=== PATIENT | female | born 1940 | race Caucasian/White ===

== ENCOUNTER 2021-12-10 08:06 | Outpatient (CLI) | payer MEDICARE, SELFPAY ==
--- NOTE | ~2021-12-10 | CT_ITS ---
EXAMINATION: CT diagnostic chest w con DATE: 12/10/2021 08:57 INDICATION: History of pneumonia TECHNIQUE: Transaxial computed tomographic images of the chest were obtained after the administration of 75 cc of Omnipaque 350 intravenous contrast. The dose-length product (DLP) was 135.35 mGy-cm. Ite rative reconstruction was used. COMPARISON: None FINDINGS: There are patchy airspace opacities of the lungs with a peripheral predominance. There is n o pleural effusion or pneumothorax. No pathologically enlarged thoracic lymph nodes are identified. T he heart size is normal. There is severe thoracic spondylosis. There are partially imaged changes of anterior fusion in the cervical spine. IMPRESSION: 1. Patchy airspace opacities of the lungs, likely atelectasis and resolving pneumonia. Underlying chr onic interstitial lung disease is not excluded. Reviewed, dictated and finalized at location A. VIORAL INTERVENTIONIST IMPRESSION: 1. Patchy airspace opacities of the lungs, likely atelectasis and resolving pne umonia. Underlying chronic interstitial lung disease is not excluded.
[2021-12-10 08:51] LABS: Estimated Glomerular Filt Rate > 60
== END 2021-12-10 08:07 | disposition home or self-care (01) ==
LOC: ANHIMG 08:16
PROVIDERS: Visit Provider Internal Medicine
DX: R91.8 Other nonspecific abnormal finding of lung field (principal)
CPT/HCPCS: 71260; Q9967

== ENCOUNTER 2022-04-05 17:54 | Observation (INO) | payer MEDICARE, MEDICAID, SELFPAY ==
--- NOTE | ~2022-04-05 | CT_ITS ---
EXAMINATION: CT abdomen pelvis wo con DATE: 04/06/2022 15:51 INDICATION: Right hip pain. TECHNIQUE: Computed tomography (CT) of the abdomen and pelvis was performed without intravenous contr ast. Automated exposure control and iterative reconstruction technique were employed. The dose-length product was 981.28 mGy-cm. COMPARISON: Pelvis and right hip radiograph 04/06/2022, chest CT 12/10/2021 FINDINGS: The visualized portions of the lung bases demonstrate mild atelectasis. There is a 14 mm no dule in right middle lobe. There are trace pleural effusions. The heart size is normal. There are cor onary artery calcifications. No pericardial effusion. There is ectasia of ascending aorta measuring 4 .2 cm. The liver is normal. The gallbladder is distended, likely secondary to fasting. The spleen, pa ncreas, adrenal glands, and kidneys are normal. There is no urolithiasis. There are no dilated loops of bowel. The appendix is not visualized. There are no pathologically enlarged lymph nodes. There is no free intraperitoneal fluid. There is a total right hip arthroplasty. Acetabular protrusio is noted . There is an old ununited transverse fracture of right acetabulum resulting in loosening of the acet abular cup inferiorly. There is an old healed fracture of right inferior pubic ramus. There are heali ng insufficiency fractures of the sacral ala. There is moderate left hip osteoarthritis. There is sev ere thoracolumbar spondylosis. There are changes of posterior fusion procedure from L3 to L5 with ped icle screws. There is lucency around the L3 screws, consistent with loosening. There are changes of a nterior fusion procedure at L5-S1 with interbody device and anterior plate and screws. IMPRESSION: 1. 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 2. Posterior fusion procedure from L3 to L5 with lucency about the L3 screws, consistent with looseni ng. 3. Worsened 14 mm nodule in right lung middle lobe, most likely infection. Noncontrast chest CT is re commended in 3 months to exclude malignancy. Reviewed, dictated and finalized at location B. IMPRESSION: 1. 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 2. Posterior fusion procedure from L3 to L5 with lucency about the L3 screws, c onsistent with loosening. 3. Worsened 14 mm nodule in right lung middle lobe, most likely infection. Nonc ontrast chest CT is recommended in 3 months to exclude malignancy.
--- NOTE | ~2022-04-05 | XR_ITS ---
EXAMINATION: XR chest 1V portable Exam Date/Time: 04/05/2022 18:20 CDT HISTORY: weakness Comparison: CT chest 12/10/2021. RESULT: Lines, tubes, and devices: Cervical fusion hardware. Lungs and pleura: Senescent changes, otherwise clear. Cardiomediastinal silhouette: Stable cardiomediastinal silhouette. Other: No acute osseous or upper abdominal finding. IMPRESSION: No acute cardiopulmonary process. Reviewed, dictated and finalized at location K.
--- NOTE | ~2022-04-05 | US_ITS ---
US venous doppler [facility] DATE: 04/06/2022 14:00 INDICATION: Right leg pain TECHNIQUE: Real-time and color flow imaging and Doppler analysis of the veins of the lower extremitie s COMPARISON: None FINDINGS: There is spontaneous and phasic flow and normal augmentation and color flow signal and norm al compression of the common femoral, femoral, popliteal, posterior tibial and peroneal veins of both lower extremity. IMPRESSION: No evidence of deep venous thrombosis of the lower extremities Reviewed, dictated and finalized at Location A. Reviewed, dictated and finalized at location A.
--- NOTE | ~2022-04-05 | XR_ITS ---
EXAMINATION: 1. XR femur RT min 2V 2. XR hip BI 2V w AP pelvis DATE: 04/06/2022 14:40 INDICATION: Right thigh pain. Fall. TECHNIQUE: 2 views of right femur on 4 radiographs were obtained. An anteroposterior view of the pelv is and 2 views of each hip were obtained. COMPARISON: None. FINDINGS: PELVIS AND HIPS: There are changes of posterior fusion procedure in lumbar spine with pedicle screws. There are changes of anterior fusion procedure at L5-S1. There is a total right hip arthroplasty wit h acetabular protrusio. There is 7 mm lucency adjacent to the acetabular cup inferomedially. There is a fracture deformity of right inferior pubic ramus, likely old. There is moderate left hip osteoarth ritis. RIGHT FEMUR: Again seen is a total right hip arthroplasty as described above. Right knee demonstrates moderate osteoarthritis of medial compartment and mild osteoarthritis of lateral and patellofemoral compartments. No knee joint effusion. IMPRESSION: 1. Total right hip arthroplasty with lucency adjacent to the acetabular component that may be a displ aced periprosthetic fracture or a finding of loosening or infection. Noncontrast pelvis CT is recomme nded. Reviewed, dictated and finalized at location B. IMPRESSION: 1. Total right hip arthroplasty with lucency adjacent to the acetabular compone nt that may be a displaced periprosthetic fracture or a finding of loosening or infection. Noncontrast pelvis CT is recommended.
--- NOTE | ~2022-04-05 | CT_ITS ---
EXAMINATION: CT brain wo con DATE: 04/05/2022 19:06 INDICATION: confusion . TECHNIQUE: Computed tomography (CT) of the head was performed without intravenous contrast. The mA wa s adjusted according to patient size. Iterative reconstruction technique was employed. The dose-lengt h product was 832.33 mGy-cm. COMPARISON: None FINDINGS: No acute intracranial hemorrhage or extra-axial fluid collection. No hydrocephalus, mass, or herniation. No acute ischemic infarct. Unremarkable dural venous sinus attenuation. No acute osseous abnormality. The aerated spaces are clear. Mild atrophy and chronic white matter change. Atherosclerotic intracranial calcifications. Bilateral lens replacements. IMPRESSION: No acute intracranial process. Reviewed, dictated and finalized at location K.
--- NOTE | ~2022-04-05 | US_ITS ---
EXAMINATION: US venous doppler UE RT DATE: 04/06/2022 13:59 INDICATION: Right upper limb pain. TECHNIQUE: Grayscale images without and with compression and Doppler images of the right upper extrem ity veins were obtained. COMPARISON: None. FINDINGS: The right internal jugular vein, subclavian vein, axillary vein, brachial vein, basilic vein, cephali c vein, radial vein, and ulnar vein are patent. IMPRESSION: 1. Patent right upper extremity veins. No evidence of venous thrombosis. Reviewed, dictated and finalized at location A.
--- NOTE | 2022-04-05 18:03 | ECG_ITS ---
Measurements Intervals [place] Rate: 77 P: 56 ME: 132 QRS: -18 QRSD: 92 T: 31 QT: 381 QTc: 432 Interpretive Statements SINUS RHYTHM Electronically Signed On 04-06-2022 11:17:07 CDT by Raffy Preston M.D.
[2022-04-05 18:04] VITALS: BP 149/81; PULSE 80; RESP 18; TEMP 36.9; O2SAT 96
--- NOTE | 2022-04-05 18:14 | PC.NURSE ---
BS 124
[2022-04-05 18:17] LABS: Glucose Point of Care 124 mg/dl (65-105)
[2022-04-05 18:28] LABS: Appearance Urine Cloudy (Clear); Bilirubin Urine Negative (Negative); Blood Urine 1+ (Negative); Color Urine Yellow (Yellow); Glucose Urine UA Negative (Negative); Ketones Urine Negative (Negative); Leukocyte Esterase Ur 3+ LEU/UL (Negative); Nitrate Urine Negative (Negative); Protein Urine 1+ mg/dL (Negative); Urobilinogen Urine 0.2 mg/dL (<2.0); pH Urine 6.5 (5.0-9.0)
[2022-04-05 18:33] LABS: Bacteria Urine 1+ /hpf; Mucus Urine Rare /lpf; Squamous Epithelial Cell Urine Occasional /hpf (Few); WBC Clumps Urine Present /HPF; WBC Urine >75 /hpf
[2022-04-05 18:35] LABS: Add Urine Microscopic? YES
--- NOTE | 2022-04-05 18:41 | ED.AMS ---
HPI - Altered Mental Status General Chief Complaint: Altered Mental Status Stated Complaint: decreased LOC Time Seen by Provider: 04/05/22 18:10 History of Present Illness HPI narrative: Pt presents with altered mental status from local NH. Pt sleeping a lot, not making sense per family when talking. Having trouble putting coherent sentences together. Related Data Allergies Allergy/AdvReac Type Severity Reaction Status Date / Time codeine AdvReac Unknown N&V Verified 04/05/22 18:14 Review of Systems Review of Systems: ROS unobtainable: Yes unobtainable due to mental status Exam Const: General: healthy appearing and no acute distress Nutritional Appearance: well nourished Limitations: altered mental status HENMT: Head: normal to inspection Neck: Neck: normal visual inspection, no lymphadenopathy and no meningeal signs Resp: Effort & Inspection: normal respiratory effort Auscultation: clear to auscultation bilaterally Cardio: Rate: regular rate Rhythm: regular rhythm GI: GI Palp: Yes Soft to palpation Auscultation: normal bowel sounds Skin: General skin exam: normal color Rashes: no rashes Neuro: General: patient oriented x3 (oriented to person), moves all extremities, no meningeal signs, no focal motor deficits and CN's II-XI intact bilaterally Cranial nerves: Yes Nystagmus not present Speech: normal speech Extrem: General: normal to inspection and no clubbing, cyanosis or edema Other: drop feet b/l (old) Psych: Other: confused Course Vital Signs Vital signs: Vital Signs Temperature 98.4 F 04/05/22 18:04 Pulse Rate 80 04/05/22 18:04 Respiratory Rate 18 04/05/22 18:04 Blood Pressure 149/81 H 04/05/22 18:04 Pulse Oximetry 96 04/05/22 18:04 Oxygen Delivery Room Air 04/05/22 18:04 Temperature 98.4 F 04/05/22 18:04 Pulse Rate 76 04/05/22 19:43 Respiratory Rate 18 04/05/22 19:43 Blood Pressure 147/88 H 04/05/22 19:43 Pulse Oximetry 99 04/05/22 19:43 Oxygen Delivery Room Air 04/05/22 18:04 MDM - Altered Mental Status Lab Data Result diagrams: 04/05/22 18:55 04/05/22 18:55 Labs: Lab Results 04/05/22 04/05/2222 Range/Units 18:13 18:17 18:55 WBC 9.0 (4.5-10.0) K/mm3 RBC 3.62 L (4.2-5.4) M/mm3 Hgb 11.0 L (12.0-15.0) g/dL Hct 34.3 L (37.0-47.0) % MCV 94.8 (80-100) fl MCH 30.4 (26-34) pg MCHC 32.1 (32-36) g/dl RDW 16.1 H (11.5-14.5) % Plt Count 385 H (150-375) k/mm3 MPV 8.9 (7.4-10.4) fl Immature Gran % (Auto) 0.3 (0-0.5) % Neut % (Auto) 76.1 H (45.5-73.1) % Lymph % (Auto) 15.7 L (18.3-44.2) % [place] % (Auto) 7.5 (2.6-8.5) % Eos % (Auto) 0.2 (0-4.4) % Baso % (Auto) 0.2 (0.2-1.2) % Lymph # (Auto) 1.41 (0.9-3.2) K/mm3 [place] # (Auto) 0.7 H (0.1-0.6) K/mm3 Eos # (Auto) 0.0 (0-0.3) K/mm3 Baso # (Auto) 0.0 (0.0-0.1) K/mm3 Abs Immat Gran (auto) 0.03 (0.00-0.031) K/mm3 Absolute Neuts (auto) 6.8 H (1.3-6.7) K/mm3 Absolute Nucleated RBC 0.0 (0.0-0.012) K/mm3 Nucleated RBC % 0.0 (0.0-0.2) % PT (11.1-14.7) Seconds INR APTT (22.3-36.8) SECONDS Sodium (137-145) mmol/L Potassium (3.4-5.0) mmol/L Chloride (98-107) mmol/L Carbon Dioxide (22-30) mmol/L Anion Gap (8-16) mmol/L BUN (7-17) mg/dL Creatinine (0.7-1.0) mg/dL Estim Creat Clear Calc ml/min Estimated GFR (59 - ) Glucose (65-110) mg/dL POC Capillary Glucose 124 H (65-105) mg/dl Calcium (8.4-10.2) mg/dL Total Bilirubin (0.2-1.3) mg/dL AST (14-36) U/L ALT (6-35) U/L Alkaline Phosphatase (38-126) U/L Total Protein (6.3-8.2) g/dL Albumin (3.5-5.1) g/dL Urine Color Yellow (Yellow) Urine Appearance Cloudy H (Clear) Urine pH 6.5 (5.0-9.0) Ur Specific [place] 1.020 (1.001-1.035) Urine Protein 1+ H (Negative) mg/dL Urine Gluco
--- NOTE | 2022-04-05 18:56 | PC.NURSE ---
Pt to CT scan via stretcher.
[2022-04-05 19:03] LABS: Basophils Percent Auto 0.2 % (0.2-1.2); Eosinophils Percent Auto 0.2 % (0-4.4); Hematocrit 34.3 % (37.0-47.0); Immature Granulocyte Absolute 0.03 K/mm3 (0.00-0.031); Immature Granulocyte Percent A 0.3 % (0-0.5); Lymphocytes Absolute Auto 1.41 K/mm3 (0.9-3.2); Lymphocytes Percent Auto 15.7 % (18.3-44.2); Mean Corpuscular HGB Conc 32.1 g/dl (32-36); Mean Corpuscular Hemoglobin 30.4 pg (26-34); Mean Corpuscular Volume 94.8 fl (80-100); Mean Platelet Volume 8.9 fl (7.4-10.4); Monocytes Absolute Auto 0.7 K/mm3 (0.1-0.6); Monocytes Percent Auto 7.5 % (2.6-8.5); Neutrophils Absolute Auto 6.8 K/mm3 (1.3-6.7); Neutrophils Percent Auto 76.1 % (45.5-73.1); Platelet Count Result 385 k/mm3 (150-375); Red Blood Count 3.62 M/mm3 (4.2-5.4); Red Cell Distribution Width 16.1 % (11.5-14.5)
[2022-04-05 19:17] LABS: INR 1.2; Prothrombin Time 14.4 Seconds (11.1-14.7)
[2022-04-05 19:19] LABS: Alanine Aminotransferase 24 U/L (6-35); Albumin Level 3.9 g/dL (3.5-5.1); Alkaline Phosphatase 53 U/L (38-126); Anion Gap 4 mmol/L (8-16); Aspartate Amino Transferase 31 U/L (14-36); Bilirubin,Total 0.5 mg/dL (0.2-1.3); Blood Urea Nitrogen 32 mg/dL (7-17); Calcium 11.4 mg/dL (8.4-10.2); Carbon Dioxide 35 mmol/L (22-30); Chloride 96 mmol/L (98-107); Estimated CRCL calculation 28 ml/min; Estimated Glomerular Filt Rate 33; Glucose 112 mg/dL (65-110); Potassium 3.8 mmol/L (3.4-5.0); Sodium 135 mmol/L (137-145)
[2022-04-05 19:43] VITALS: BP 147/88; PULSE 76; RESP 18; O2SAT 99
--- NOTE | 2022-04-05 19:46 | PC.NURSE ---
Assume care of pt at this time. Pt A&Ox1, upright on stretcher. Pt and family updated on POC.
[2022-04-05] MEDS: SODIUM CHLORIDE 0.9% IV 1,000 ML 999 ML IV CONT (20:12)
[2022-04-05] MEDS: fentaNYL CITRATE INJ (*CRX) 100 MCG/2 ML VIAL 25 MCG IV PUSH (21:10)
[2022-04-05 21:12] VITALS: BP 149/100
[2022-04-05 21:20] VITALS: PULSE 78; RESP 18; O2SAT 94
--- NOTE | 2022-04-05 21:50 | PC.NURSE ---
Rm 255 not clean. 2nd Med will call back when ready for pt arrival
--- NOTE | 2022-04-05 22:22 | ADMGEN ---
This patient, Jana Duarte, was admitted to 2 Medical Room 255-. Patient/family oriented to hospital policies and general routines including ID bracelet, bed and alarms, visiting hours, pain management, procedures, bathroom and other care routines, personal items, smoking policy, room service/diet, and visiting hours. Information on how to activate the Rapid Response Team has been discussed. Patient/Family are encouraged to report perceived risks to care and to ask questions if they do not understand what they are told or what they should do.
[2022-04-05 22:45] VITALS: BP 154/96; PULSE 60; RESP 20; TEMP 36.6; O2SAT 99
[2022-04-05] MEDS: SODIUM CHLORIDE 0.9% IV 1,000 ML 100 ML IV CONT (22:54)
[2022-04-05] MEDS: ACETAMINOPHEN 325 MG TABLET 650 MG PO (23:42)
[2022-04-06 01:00] VITALS: BP 149/74; PULSE 74; RESP 18; TEMP 36.7; O2SAT 97
[2022-04-06] MEDS: BACLOFEN 5 MG TABLET 2.5 MG PO ×3 (01:05→17:24)
[2022-04-06] MEDS: ALPRAZolam (*CRX) 0.25 MG TABLET PO (01:05)
--- NOTE | 2022-04-06 05:33 | PM.IMHP ---
H&P: HPI History of Present Illness Date/Time: 04/06/22 05:33 Chief Complaint: Increased weakness and more confused than usual Narrative: 81-year-old female with a past medical history a of advanced dementia, chronic urinary retention, GERD, hypertension, rheumatoid arthritis and hypothyroidism who presented to the ER [facility] due to altered mental status. The family told ER providers that the patient has chronic weakness falls and foot drop but is not at her baseline. She is bed-bound at baseline and has had a chronic Sotelo catheter for the past year due to chronic urinary retention. The family states that the patient is sleeping more than usual and is not making sense when talking. Evidently she used to be able to put a coherent sentence together. Patient has been afebrile. She does not have a white count. She does not have a fever. Review of Systems Review of Systems: ROS unobtainable: Yes unobtainable due to mental status PMFSH Past Medical History Medical History Chronic indwelling Sotelo catheter COVID (10/2021) Dementia Essential hypertension GERD (gastroesophageal reflux disease) Hyperlipidemia Hypothyroidism Rheumatoid arthritis Urinary retention Surgical History Surgical History Status post cataract extraction of both eyes with insertion of intraocular lens Family History Family History Mother Cerebrovascular accident Sibling Cancer Social History Social History (Updated 04/06/22 @ 08:02 by Amee Hernandez DO) Smoking status: Never smoker Alcohol intake: never Substance use: never Substance use type: does not use Additional living arrangements comments: [facility] Care Spiritual care concerns: No Meds Home Medications and Allergies Home Medications Medication Instructions Recorded Confirmed Type acetaminophen 325 mg tablet 650 mg PO Q6H PRN Pain (Scale 04/05/22 04/05/22 History (Tylenol) Score 1-3) alprazolam 0.25 mg tablet 0.25 mg PO BID 04/05/22 04/05/22 History amlodipine 10 mg tablet 10 mg PO DAILY 04/05/22 04/05/22 History ascorbic acid (vitamin C) 500 mg 500 mg PO DAILY 04/05/22 04/05/22 History tablet baclofen 5 mg tablet 2.5 mg PO BID 04/05/22 04/05/22 History bisacodyl 10 mg rectal suppository 10 mg RECTAL DAILY PRN Constipation 04/05/22 04/05/22 History cyanocobalamin (vitamin B-12) 100 100 mcg PO DAILY 04/05/22 04/05/22 History mcg tablet diclofenac sodium 1 % topical gel 1 ea topical TID PRN Back Pain 04/05/22 04/05/22 History (Arthritis Pain (diclofenac)) folic acid 1 mg tablet 1.5 mg PO DAILY 04/05/22 04/05/22 History hydrocodone 10 mg-acetaminophen 1 tablet PO Q6H PRN Pain (Scale 04/05/22 04/05/22 History 325 mg tablet Score 4-6) hydrocortisone 1 % topical cream 1 applic topical BID PRN Itching 04/05/22 04/05/22 History levothyroxine 125 mcg tablet 125 mcg PO DAILY 04/05/22 04/05/22 History lidocaine 5 % topical patch 1 patch topical DAILY 04/05/22 04/05/22 History (Lidoderm) losartan 25 mg tablet 25 mg PO DAILY 04/05/22 04/06/22 History magnesium citrate 300 ml PO DAILY PRN Constipation 04/05/22 04/05/22 History magnesium hydroxide 400 mg/5 mL 30 ml PO HS PRN Constipation 04/05/22 04/06/22 History oral suspension (Milk of Magnesia) magnesium oxide 400 mg (241.3 mg 400 mg PO TID 04/05/22 04/06/22 History magnesium) tablet (MagOx) methotrexate sodium 2.5 mg tablet 15 mg PO WEEKLY 04/05/22 04/06/22 History metoclopramide HCl 5 mg tablet 5 mg PO BID 04/05/22 04/06/22 History multivitamin,tx-minerals 1 tablet PO DAILY 04/05/22 04/06/22 History pantoprazole 40 mg tablet,delayed 40 mg PO QAM 04/05/22 04/06/22 History release (Protonix) polyethylene glycol 3350 17 gram 17 g PO BID 04/05/22 04/06/22 History oral powder packet (Miralax) pravastat
[2022-04-06] MEDS: HYDROcodone/acetaminophen (*CRX) 10-325 MG TABLET 1 TAB PO ×2 (06:01→14:59)
[2022-04-06] MEDS: LEVOTHYROXINE SODIUM 125 MCG TABLET PO (06:01)
[2022-04-06 06:30] VITALS: BP 147/94; PULSE 74; RESP 20; TEMP 36.6; O2SAT 99
[2022-04-06 08:08] LABS: Hematocrit 36.5 % (37.0-47.0); Hemoglobin 11.5 g/dL (12.0-15.0); Mean Corpuscular HGB Conc 31.5 g/dl (32-36); Mean Corpuscular Hemoglobin 29.8 pg (26-34); Mean Corpuscular Volume 94.6 fl (80-100); Mean Platelet Volume 9.1 fl (7.4-10.4); Platelet Count Result 352 k/mm3 (150-375); Red Blood Count 3.86 M/mm3 (4.2-5.4); Red Cell Distribution Width 16.2 % (11.5-14.5); White Blood Count 8.6 K/mm3 (4.5-10.0)
[2022-04-06 08:29] LABS: Alanine Aminotransferase 22 U/L (6-35); Albumin Level 3.7 g/dL (3.5-5.1); Alkaline Phosphatase 48 U/L (38-126); Anion Gap 4 mmol/L (8-16); Aspartate Amino Transferase 30 U/L (14-36); Bilirubin,Total 0.6 mg/dL (0.2-1.3); Blood Urea Nitrogen 30 mg/dL (7-17); Carbon Dioxide 32 mmol/L (22-30); Chloride 99 mmol/L (98-107); Estimated CRCL calculation 30 ml/min; Estimated Glomerular Filt Rate 36; Glucose 105 mg/dL (65-110); Potassium 3.2 mmol/L (3.4-5.0); Sodium 135 mmol/L (137-145)
[2022-04-06] MEDS: SODIUM CHLORIDE 0.9% IV 1,000 ML 100 ML IV CONT ×2 (09:00→20:54)
[2022-04-06] MEDS: amLODIPine BESYLATE 5 MG TABLET 10 MG PO (09:06)
[2022-04-06] MEDS: FOLIC ACID 1 MG TABLET PO (09:09)
[2022-04-06] MEDS: SENNA/DOCUSATE SODIUM TABLET 2 TAB PO ×2 (09:09→20:54)
[2022-04-06] MEDS: FOLIC ACID 0.4 MG TABLET PO (09:11)
[2022-04-06] MEDS: LOSARTAN POTASSIUM 25 MG TABLET PO (09:12)
[2022-04-06] MEDS: METOCLOPRAMIDE HCL 5 MG TABLET PO ×2 (09:12→17:23)
[2022-04-06] MEDS: PANTOPRAZOLE 40 MG TABLET PO (09:13)
[2022-04-06] MEDS: PRAVASTATIN SODIUM 20 MG TABLET PO (09:13)
[2022-04-06] MEDS: predniSONE 5 MG TABLET PO (09:13)
[2022-04-06] MEDS: VITAMIN E 400 UNIT CAPSULE PO (09:14)
[2022-04-06] MEDS: VENLAFAXINE HCL XR 75 MG CAP.ER.24H 150 MG PO (09:14)
[2022-04-06] MEDS: LIDOCAINE 5% PATCH 1 PATCH TOPICAL (10:15)
[2022-04-06 10:27] VITALS: BP 153/75; PULSE 65; RESP 16; TEMP 36.4; O2SAT 100
--- NOTE | 2022-04-06 13:51 | PM.IMPN ---
Progress Note: A&P Assessment and Plan (1) Bacteriuria with pyuria: Code(s): R82.71 - Bacteriuria; R82.81 - Pyuria Status: Acute Assessment and Plan: Patient has bacteria & pyuria along with her confusion. She is afebrile and does not have a white count. She is chronically brink catheterized for urinary retention. Urine today appeared clear and yellow in the catheter bag. Patient is on empiric antibiotic therapy with Rocephin which we will continue at this time pending culture and sensitivity. (2) Chronic indwelling Brink catheter: Code(s): Z97.8 - Presence of other specified devices Status: Acute Assessment and Plan: As above. (3) Dementia: Qualifiers: Dementia type: Alzheimer's Alzheimer's disease onset: late-onset Dementia behavioral disturbance: without behavioral disturbance Qualified Code(s): G30.1 - Alzheimer's disease with late onset; F02.80 - Dementia in other diseases classified elsewhere without behavioral disturbance Code(s): F03.90 - Unspecified dementia without behavioral disturbance Status: Acute Assessment and Plan: Patient is incredibly disoriented today. She knew she was in the hospital, but was unsure why. Asked me if I had heard her dog barking, or if anyone had heard her dog barking, and became intensely distraught when I said no. she asked for her was and I said I did not now but perhaps he was coming to visit at which point she also began crying. She was distractible, however physical exam was difficult due to her crying and being inconsolable in general. We will continue to evaluate his mental status during her stay. (4) Hypertension: Qualifiers: Hypertension type: primary hypertension Qualified Code(s): I10 - Essential (primary) hypertension Code(s): I10 - Essential (primary) hypertension Status: Acute Assessment and Plan: Patient is mildly hypertensive today, but we will continue her home medications at this time. This could also be from reported pain in her right thigh. (5) Acute kidney injury: Code(s): N17.9 - Acute kidney failure, unspecified Status: Acute Assessment and Plan: Patient's creatinine elevated upon admission from her baseline, which appears normal. She is receiving IV fluid resuscitation at 100 mL mL per hour, as she is having poor oral intake. She continues to put out urine through her Brink catheter. Daily ins and outs Encourage oral rehydration A.m. labs (6) Fall: Code(s): W19.XXXA - Unspecified fall, initial encounter Status: Acute Assessment and Plan: senior care reports a fall from a [id number], wherein patient fell to her right hip and buttocks. At the time an x-ray was obtained which showed no acute fracture, however patient is expressing severe pain in the right hip when being turned by the nursing staff. Nursing staff pt the pain seems out of proportion to her exam findings. Additionally, the patient's fingernails appear to be avulsed at the distal tips, in her right hand is erythematous and swollen. Unsure if this is from the fall, or her rheumatoid arthritis. We will be obtaining plain films and venous duplex to evaluate for acute fracture and DVT. Plan Patient has bacteria pyuria. She is afebrile and does not have a white count. Patient's family reports the patient has been more confused but the patient is conversational at the time my evaluation. Will await urine cultures. Patient is on empiric antibiotic therapy with Rocephin but patient could simply of asymptomatic bacteriuria with her chronic indwelling Brink catheter. Patient has acute kidney injury. Likely some component of dehydration. I have had the Brink catheter exchange. Will continue IV fluid hydration and repeat BMP in a.m.. The patient has essential hypertension her blood pressure is relatively stable. Will resume home antihypertensives. [place]
[2022-04-06 14:10] VITALS: BP 137/64; PULSE 65; RESP 16; TEMP 36.6; O2SAT 98
[2022-04-06 20:00] VITALS: BP 154/61; PULSE 70; RESP 16; TEMP 36.4; O2SAT 100
[2022-04-06] MEDS: polyethylene glycoL 3350 17 GM POWD.PACK PO (20:54)
[2022-04-07] VITALS (9 sets, daily range): BP systolic 111–150; BP diastolic 43–80; PULSE 66–77; RESP 16–20; TEMP 36.1–37.5; O2SAT 96–100
[2022-04-07] MEDS: HYDROcodone/acetaminophen (*CRX) 10-325 MG TABLET 1 TAB PO ×4 (01:30→22:55)
[2022-04-07] MEDS: ALPRAZolam (*CRX) 0.25 MG TABLET PO ×3 (01:31→16:42)
[2022-04-07 05:35] LABS: Basophils Percent Auto 0.2 % (0.2-1.2); Eosinophils Absolute Auto 0.2 K/mm3 (0-0.3); Eosinophils Percent Auto 2.3 % (0-4.4); Hematocrit 33.8 % (37.0-47.0); Hemoglobin 10.9 g/dL (12.0-15.0); Immature Granulocyte Absolute 0.04 K/mm3 (0.00-0.031); Immature Granulocyte Percent A 0.4 % (0-0.5); Lymphocytes Absolute Auto 0.91 K/mm3 (0.9-3.2); Lymphocytes Percent Auto 8.7 % (18.3-44.2); Mean Corpuscular HGB Conc 32.2 g/dl (32-36); Mean Corpuscular Hemoglobin 30.2 pg (26-34); Mean Corpuscular Volume 93.6 fl (80-100); Mean Platelet Volume 9.5 fl (7.4-10.4); Monocytes Absolute Auto 0.9 K/mm3 (0.1-0.6); Monocytes Percent Auto 8.6 % (2.6-8.5); Neutrophils Absolute Auto 8.4 K/mm3 (1.3-6.7); Neutrophils Percent Auto 79.8 % (45.5-73.1); Platelet Count Result 336 k/mm3 (150-375); Red Blood Count 3.61 M/mm3 (4.2-5.4); Red Cell Distribution Width 15.9 % (11.5-14.5); White Blood Count 10.5 K/mm3 (4.5-10.0)
[2022-04-07 05:43] LABS: Alanine Aminotransferase 23 U/L (6-35); Albumin Level 3.4 g/dL (3.5-5.1); Alkaline Phosphatase 44 U/L (38-126); Anion Gap 4 mmol/L (8-16); Aspartate Amino Transferase 27 U/L (14-36); Bilirubin,Total 0.4 mg/dL (0.2-1.3); Blood Urea Nitrogen 28 mg/dL (7-17); Calcium 10.6 mg/dL (8.4-10.2); Carbon Dioxide 28 mmol/L (22-30); Chloride 102 mmol/L (98-107); Estimated CRCL calculation 32 ml/min; Estimated Glomerular Filt Rate 40; Glucose 96 mg/dL (65-110); Potassium 3.1 mmol/L (3.4-5.0); Sodium 134 mmol/L (137-145)
[2022-04-07] MEDS: LEVOTHYROXINE SODIUM 125 MCG TABLET PO (06:14)
[2022-04-07] MEDS: SODIUM CHLORIDE 0.9% IV 1,000 ML 100 ML IV CONT (06:14)
[2022-04-07] MEDS: polyethylene glycoL 3350 17 GM POWD.PACK PO ×2 (08:02→20:17)
[2022-04-07] MEDS: amLODIPine BESYLATE 5 MG TABLET 10 MG PO (08:03)
[2022-04-07] MEDS: LIDOCAINE 5% PATCH 1 PATCH TOPICAL (08:03)
[2022-04-07] MEDS: VITAMIN E 400 UNIT CAPSULE PO (08:04)
[2022-04-07] MEDS: METHOTREXATE 2.5 MG TAB (*CHEMO) 15 MG PO (08:07)
[2022-04-07] MEDS: predniSONE 5 MG TABLET PO (08:08)
[2022-04-07] MEDS: VENLAFAXINE HCL XR 75 MG CAP.ER.24H 150 MG PO (08:10)
[2022-04-07] MEDS: LOSARTAN POTASSIUM 25 MG TABLET PO (08:10)
[2022-04-07] MEDS: FOLIC ACID 0.4 MG TABLET PO (08:10)
[2022-04-07] MEDS: PRAVASTATIN SODIUM 20 MG TABLET PO (08:10)
[2022-04-07] MEDS: SENNA/DOCUSATE SODIUM TABLET 2 TAB PO ×2 (08:10→20:17)
[2022-04-07] MEDS: PANTOPRAZOLE 40 MG TABLET PO (08:11)
[2022-04-07] MEDS: FOLIC ACID 1 MG TABLET PO (08:11)
[2022-04-07] MEDS: METOCLOPRAMIDE HCL 5 MG TABLET PO ×2 (08:11→16:43)
[2022-04-07] MEDS: BACLOFEN 5 MG TABLET 2.5 MG PO ×2 (09:21→16:43)
[2022-04-07] MEDS: POTASSIUM CHLORIDE INJ 40 MEQ in SODIUM CHLORIDE 0.9% IV 500 ML 130 MEQ IVPB (09:24)
--- NOTE | 2022-04-07 10:31 | PM.IMPN ---
Progress Note: A&P Assessment and Plan (1) Bacteriuria with pyuria: Code(s): R82.71 - Bacteriuria; R82.81 - Pyuria Status: Acute Assessment and Plan: Patient has bacteria & pyuria along with her confusion. She is afebrile and does not have a white count. She is chronically brink catheterized for urinary retention. Urine today appeared clear and yellow in the catheter bag. Patient is on empiric antibiotic therapy with Rocephin which we will continue at this time pending culture and sensitivity. (2) Chronic indwelling Brink catheter: Code(s): Z97.8 - Presence of other specified devices Status: Acute Assessment and Plan: As above. (3) Dementia: Qualifiers: Dementia type: Alzheimer's Alzheimer's disease onset: late-onset Dementia behavioral disturbance: without behavioral disturbance Qualified Code(s): G30.1 - Alzheimer's disease with late onset; F02.80 - Dementia in other diseases classified elsewhere without behavioral disturbance Code(s): F03.90 - Unspecified dementia without behavioral disturbance Status: Acute Assessment and Plan: Patient is incredibly disoriented today. She knew she was in the hospital, but was unsure why. Asked me if I had heard her dog barking, or if anyone had heard her dog barking, and became intensely distraught when I said no. she asked for her was and I said I did not now but perhaps he was coming to visit at which point she also began crying. She was distractible, however physical exam was difficult due to her crying and being inconsolable in general. We will continue to evaluate his mental status during her stay. --resolving (4) Hypertension: Qualifiers: Hypertension type: primary hypertension Qualified Code(s): I10 - Essential (primary) hypertension Code(s): I10 - Essential (primary) hypertension Status: Acute Assessment and Plan: Patient is mildly hypertensive today, but we will continue her home medications at this time. This could also be from reported pain in her right thigh. (5) Acute kidney injury: Code(s): N17.9 - Acute kidney failure, unspecified Status: Acute Assessment and Plan: Patient's creatinine elevated upon admission from her baseline, which appears normal. She is receiving IV fluid resuscitation at 100 mL mL per hour, as she is having poor oral intake. She continues to put out urine through her Brink catheter. Daily ins and outs Encourage oral rehydration A.m. labs Continue monitor. (6) Fall: Code(s): W19.XXXA - Unspecified fall, initial encounter Status: Acute Assessment and Plan: [facility] reports a fall from a [id number], wherein patient fell to her right hip and buttocks. At the time an x-ray was obtained which showed no acute fracture, however patient is expressing severe pain in the right hip when being turned by the nursing staff. Nursing staff pt the pain seems out of proportion to her exam findings. Additionally, the patient's fingernails appear to be avulsed at the distal tips, in her right hand is erythematous and swollen. Unsure if this is from the fall, or her rheumatoid arthritis. We will be obtaining plain films and venous duplex to evaluate for acute fracture and DVT. PT/OT eval and treat---patient does have footdrop? Subjective Date/time seen: 04/07/22 10:31 Interval history: Patient alert and oriented this morning. Although she feels fatigued. Patient did not rest well last night. She is currently on Rocephin and required 40 mEq of potassium due to potassium of 3.1. Orthopedic was consulted due to a right femur and pelvis plain films show total right hip arthroplasty with new seen adjacent to the acetabular pelvic component that may be displaced periprosthetic fracture or findings of loosening or infection. Patient currently is being treated for urinary tract infection. She does for chronic
--- NOTE | 2022-04-07 12:15 | PM.CNOR ---
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 The findings by CT scan her chronic in appearance to my review. The acetabular component appears to be reasonably well-fixed to the ilium with multiple screws. Given her overall functional status at this point I do not think really anything needs to be done with a hip that is not bothering her and is stable. Thank you for the consultation. History of Present Illness HPI Consult date: 04/07/22 Chief complaint: UTI, AMS Narrative: This document created with [id number] technology and is subject to laserist irregularities. 81-year-old female that I was asked to see because of question of periprosthetic right hip replacement fracture seen on CT scan. The patient is somewhat confused but states that she is really not having any trouble with her hip. I did speak with the patient's daughter who said the patient had had a hip replacement done sometime ago and was chronically dislocating so it had been revised and she has not really had any trouble since then. Patient has also had lumbar fusion in the past. Per the notes in the chart she is a alf resident is not appear to be terribly active and suffers from chronic dementia. [facility] Past Medical History Medical History Chronic indwelling Sotelo catheter COVID (10/2021) Dementia Essential hypertension GERD (gastroesophageal reflux disease) Hyperlipidemia Hypothyroidism Rheumatoid arthritis Urinary retention Surgical History Surgical History Status post cataract extraction of both eyes with insertion of intraocular lens Family History Family History Mother Cerebrovascular accident Sibling Cancer Social History Social History Smoking status: Never smoker Alcohol intake: never Substance use: never Substance use type: does not use Additional living arrangements comments: [facility] Care Spiritual care concerns: No Meds Home Medications and Allergies Home Medications Medication Instructions Recorded Confirmed Type acetaminophen 325 mg tablet 650 mg PO Q6H PRN Pain (Scale 04/05/22 04/05/22 History (Tylenol) Score 1-3) alprazolam 0.25 mg tablet 0.25 mg PO BID 04/05/22 04/05/22 History amlodipine 10 mg tablet 10 mg PO DAILY 04/05/22 04/05/22 History ascorbic acid (vitamin C) 500 mg 500 mg PO DAILY 04/05/22 04/05/22 History tablet baclofen 5 mg tablet 2.5 mg PO BID 04/05/22 04/05/22 History bisacodyl 10 mg rectal suppository 10 mg RECTAL DAILY PRN Constipation 04/05/22 04/05/22 History cyanocobalamin (vitamin B-12) 100 100 mcg PO DAILY 04/05/22 04/05/22 History mcg tablet diclofenac sodium 1 % topical gel 1 ea topical TID PRN Back Pain 04/05/22 04/05/22 History (Arthritis Pain (diclofenac)) folic acid 1 mg tablet 1.5 mg PO DAILY 04/05/22 04/05/22 History hydrocodone 10 mg-acetaminophen 1 tablet PO Q6H PRN Pain (Scale 04/05/22 04/05/22 History 325 mg tablet Score 4-6) hydrocortisone 1 % topical cream 1 applic topical BID PRN Itching 04/05/22 04/05/22 History levothyroxine 125 mcg tablet 125 mcg PO DAILY 04/05/22 04/05/22 History lidocaine 5 % topical patch 1 patch topical DAILY 04/05/22 04/05/22 History (Lidoderm) losartan 25 mg tablet 25 mg PO DAILY 04/05/22 04/06/22 History magnesium citrate 300 ml PO DAILY PRN Constipation 04/05/22 04/05/22 History magnesium hydroxide 400 mg/5 mL 30 ml PO HS PRN Constipation 04/05/22 04/06/22 History oral suspension (Milk of Magnesia) magnesium oxide 400 mg (241.3 mg 400 mg PO TID 04/05/22 04/06/22 History magnesium) tablet (MagOx) methot
[2022-04-07] MEDS: GENTAMICIN SULFATE INJ 320 MG in DEXTROSE 5% 100 ML 100 MG IVPB (12:54)
[2022-04-07] MEDS: ACETAMINOPHEN 325 MG TABLET 650 MG PO (20:17)
[2022-04-07] MEDS: SODIUM CHLORIDE 0.9% IV 1,000 ML 75 ML IV CONT (21:12)
[2022-04-08 01:09] VITALS: BP 135/60; PULSE 63; RESP 14; TEMP 36.9; O2SAT 96
[2022-04-08 01:26] LABS: Gentamicin Random 9.2 ug/mL (5.0-12.0)
[2022-04-08 05:02] VITALS: BP 148/71; PULSE 56; RESP 16; TEMP 37.1; O2SAT 97
[2022-04-08 06:23] LABS: Basophils Percent Auto 0.2 % (0.2-1.2); Eosinophils Absolute Auto 0.3 K/mm3 (0-0.3); Eosinophils Percent Auto 2.7 % (0-4.4); Hematocrit 33.8 % (37.0-47.0); Hemoglobin 11.1 g/dL (12.0-15.0); Immature Granulocyte Absolute 0.02 K/mm3 (0.00-0.031); Immature Granulocyte Percent A 0.2 % (0-0.5); Lymphocytes Absolute Auto 1.07 K/mm3 (0.9-3.2); Lymphocytes Percent Auto 11.5 % (18.3-44.2); Mean Corpuscular HGB Conc 32.8 g/dl (32-36); Mean Corpuscular Hemoglobin 30.4 pg (26-34); Mean Corpuscular Volume 92.6 fl (80-100); Mean Platelet Volume 9.4 fl (7.4-10.4); Monocytes Absolute Auto 0.9 K/mm3 (0.1-0.6); Monocytes Percent Auto 9.2 % (2.6-8.5); Neutrophils Absolute Auto 7.1 K/mm3 (1.3-6.7); Neutrophils Percent Auto 76.2 % (45.5-73.1); Platelet Count Result 300 k/mm3 (150-375); Red Blood Count 3.65 M/mm3 (4.2-5.4); Red Cell Distribution Width 15.9 % (11.5-14.5); White Blood Count 9.3 K/mm3 (4.5-10.0)
[2022-04-08] MEDS: LEVOTHYROXINE SODIUM 125 MCG TABLET PO (06:26)
[2022-04-08 06:37] LABS: Alanine Aminotransferase 23 U/L (6-35); Albumin Level 3.5 g/dL (3.5-5.1); Alkaline Phosphatase 48 U/L (38-126); Anion Gap 6 mmol/L (8-16); Aspartate Amino Transferase 26 U/L (14-36); Bilirubin,Total 0.3 mg/dL (0.2-1.3); Blood Urea Nitrogen 27 mg/dL (7-17); Calcium 10.7 mg/dL (8.4-10.2); Carbon Dioxide 27 mmol/L (22-30); Chloride 104 mmol/L (98-107); Estimated CRCL calculation 32 ml/min; Estimated Glomerular Filt Rate 40; Glucose 97 mg/dL (65-110); Potassium 3.3 mmol/L (3.4-5.0); Sodium 137 mmol/L (137-145)
[2022-04-08 07:29] VITALS: BP 151/100; PULSE 79; RESP 29; TEMP 36.4; O2SAT 97
[2022-04-08] MEDS: HYDROcodone/acetaminophen (*CRX) 10-325 MG TABLET 1 TAB PO (07:46)
[2022-04-08] MEDS: POTASSIUM CHLORIDE 20 MEQ TABLET 40 MEQ PO (07:47)
[2022-04-08] MEDS: BACLOFEN 5 MG TABLET 2.5 MG PO (08:26)
[2022-04-08] MEDS: polyethylene glycoL 3350 17 GM POWD.PACK PO (08:26)
[2022-04-08] MEDS: VENLAFAXINE HCL XR 75 MG CAP.ER.24H 150 MG PO (08:26)
[2022-04-08] MEDS: predniSONE 5 MG TABLET PO (08:26)
[2022-04-08] MEDS: METOCLOPRAMIDE HCL 5 MG TABLET PO (08:26)
[2022-04-08] MEDS: FOLIC ACID 1 MG TABLET PO (08:26)
[2022-04-08] MEDS: LIDOCAINE 5% PATCH 1 PATCH TOPICAL (08:27)
[2022-04-08] MEDS: amLODIPine BESYLATE 5 MG TABLET 10 MG PO (08:27)
[2022-04-08] MEDS: SENNA/DOCUSATE SODIUM TABLET 2 TAB PO (08:27)
[2022-04-08] MEDS: VITAMIN E 400 UNIT CAPSULE PO (08:27)
[2022-04-08] MEDS: PRAVASTATIN SODIUM 20 MG TABLET PO (08:27)
[2022-04-08] MEDS: FOLIC ACID 0.4 MG TABLET PO (08:27)
[2022-04-08] MEDS: PANTOPRAZOLE 40 MG TABLET PO (08:27)
[2022-04-08] MEDS: LOSARTAN POTASSIUM 25 MG TABLET PO (08:28)
[2022-04-08] MEDS: ALPRAZolam (*CRX) 0.25 MG TABLET PO (08:33)
[2022-04-08] MEDS: NITROFURANTOIN MONOHYD MACROCR 100 MG CAP PO (08:33)
--- NOTE | 2022-04-08 09:09 | PM.DS ---
DS: Admitting Diagnosis Discharge Date 04/08/2022 Admitting Diagnosis UTI Physical debility Altered mental status DS: Discharge Diagnosis Discharge Diagnosis (1) Bacteriuria with pyuria: Code(s): R82.71 - Bacteriuria; R82.81 - Pyuria Status: Acute Assessment and Plan: Patient has bacteria & pyuria along with her confusion. She is afebrile and does not have a white count. She is chronically brink catheterized for urinary retention. Urine today appeared clear and yellow in the catheter bag. Patient is on empiric antibiotic therapy with Rocephin which we will continue at this time pending culture and sensitivity. (2) Chronic indwelling Brink catheter: Code(s): Z97.8 - Presence of other specified devices Status: Acute Assessment and Plan: As above. (3) Dementia: Qualifiers: Dementia type: Alzheimer's Alzheimer's disease onset: late-onset Dementia behavioral disturbance: without behavioral disturbance Qualified Code(s): G30.1 - Alzheimer's disease with late onset; F02.80 - Dementia in other diseases classified elsewhere without behavioral disturbance Code(s): F03.90 - Unspecified dementia without behavioral disturbance Status: Acute Assessment and Plan: Patient is incredibly disoriented today. She knew she was in the hospital, but was unsure why. Asked me if I had heard her dog barking, or if anyone had heard her dog barking, and became intensely distraught when I said no. she asked for her was and I said I did not now but perhaps he was coming to visit at which point she also began crying. She was distractible, however physical exam was difficult due to her crying and being inconsolable in general. We will continue to evaluate his mental status during her stay. --resolving (4) Hypertension: Qualifiers: Hypertension type: primary hypertension Qualified Code(s): I10 - Essential (primary) hypertension Code(s): I10 - Essential (primary) hypertension Status: Acute Assessment and Plan: Patient is mildly hypertensive today, but we will continue her home medications at this time. This could also be from reported pain in her right thigh. (5) Acute kidney injury: Code(s): N17.9 - Acute kidney failure, unspecified Status: Acute Assessment and Plan: Patient's creatinine elevated upon admission from her baseline, which appears normal. She is receiving IV fluid resuscitation at 100 mL mL per hour, as she is having poor oral intake. She continues to put out urine through her Brink catheter. Daily ins and outs Encourage oral rehydration A.m. labs Continue monitor. (6) Fall: Code(s): W19.XXXA - Unspecified fall, initial encounter Status: Acute Assessment and Plan: USP reports a fall from a [id number], wherein patient fell to her right hip and buttocks. At the time an x-ray was obtained which showed no acute fracture, however patient is expressing severe pain in the right hip when being turned by the nursing staff. Nursing staff pt the pain seems out of proportion to her exam findings. Additionally, the patient's fingernails appear to be avulsed at the distal tips, in her right hand is erythematous and swollen. Unsure if this is from the fall, or her rheumatoid arthritis. We will be obtaining plain films and venous duplex to evaluate for acute fracture and DVT. PT/OT eval and treat---patient does have footdrop? DS: Summary Hospital Course Reason for hospitalization: UTI Altered mental status Physical debility Dementia Hypertension IRIS Hospital Course: Patient is a 81-year-old female with a past medical history of advanced dementia, urinary retention, GERD, hypertension, RA, hypothyroidism who presented to [facility] from [facility] crossing the ambulance due to altered mental status. The family was informed by the ED provider that the patient
[2022-04-08 11:13] VITALS: BP 151/68
[2022-04-08 12:00] VITALS: BP 157/77; PULSE 70; RESP 16; TEMP 36.2; O2SAT 96
== END 2022-04-08 12:58 ==
LOC: ANHED 20:00 → ANH2MED 21:17
PROVIDERS: Student in an Organized Health Care Education/Training Program; Admitting Provider Internal Medicine; Emergency Provider Emergency Medicine; PCP Internal Medicine; Visit Provider Nurse Practitioner Family
DX: R82.71 Bacteriuria (principal); R82.81 Pyuria; M25.551 Pain in right hip; R41.82 Altered mental status, unspecified; N17.9 Acute kidney failure, unspecified; W19.XXXA Unspecified fall, initial encounter; M79.604 Pain in right leg; K21.9 Gastro-esophageal reflux disease without esophagitis; I10 Essential (primary) hypertension; E03.9 Hypothyroidism, unspecified; M06.9 Rheumatoid arthritis, unspecified; Z86.16 Personal history of COVID-19; E78.5 Hyperlipidemia, unspecified; Z97.8 Presence of other specified devices; G30.1 Alzheimer's disease with late onset; F02.80 Dementia in other diseases classified elsewhere, unspecified severity, without behavioral disturbance, psychotic disturbance, mood disturbance, and anxiety
CPT/HCPCS: 36415; 51702; 70450; 71045; 73521; 73552; 74176; 80053; 80170; 81001; 82948; 85025; 85027; 85610; 85730; 87040; 87077; 87086; 87186; 93005; 93970; 93971; 96361; 96365; 96366; 96367; 96375; 99285; A9270; G0378; J0696; J1580; J3010; J3480; J7030; J7040; J7512

== ENCOUNTER 2022-04-09 08:53 | Outpatient (CLI) | payer MEDICARE, MEDICAID, SELFPAY ==
--- NOTE | ~2022-04-09 | CT_ITS ---
EXAMINATION: CT shoulder RT wo con DATE: 04/09/2022 09:46 INDICATION: Right shoulder pain. TECHNIQUE: Computed tomography (CT) of the right shoulder was performed without intravenous contrast. Automated exposure control and iterative reconstruction technique were employed. The dose-length pro duct was 478.74 mGy-cm. COMPARISON: Chest CT 12/10/2021 FINDINGS: There is a displaced comminuted fracture of glenoid of scapula. There is severe osteoarthri tis of glenohumeral joint and acromioclavicular joint. There are loose bodies in glenohumeral joint. There is volume loss and mild fatty atrophy of the right rotator cuff muscle bellies. There is a heidi ohumeral joint effusion. IMPRESSION: 1. Chronic comminuted fracture of right glenoid. 2. Severe polyarticular osteoarthritis. 3. Right glenohumeral joint effusion. Reviewed, dictated and finalized at location B.
--- NOTE | ~2022-04-09 | CT_ITS ---
EXAMINATION: CT shoulder LT wo con DATE: 04/09/2022 09:46 INDICATION: Left shoulder pain. TECHNIQUE: Computed tomography (CT) of the left shoulder was performed without intravenous contrast. Automated exposure control and iterative reconstruction technique were employed. The dose-length prod uct was 478.74 mGy-cm. COMPARISON: None FINDINGS: There is a small left pleural effusion. There is a displaced comminuted fracture of the navdeep ction of the acromion with the scapular spine. There is superior dislocation of acromion with respect to distal clavicle. There is anterior dislocation of humeral head with respect to glenoid. There are osteophytes at the glenohumeral and acromioclavicular joints. There is moderate fatty atrophy of sup raspinatus, infraspinatus, and subscapularis muscle bellies. There is a glenohumeral joint effusion. There is severe subacromial/subdeltoid bursitis. IMPRESSION: 1. Comminuted fracture of scapula at the junction of acromion with the scapular spine. 2. Acromioclavicular separation. 3. Anterior shoulder dislocation. 4. Glenohumeral joint effusion. Severe subacromial/subdeltoid bursitis. 5. Small left pleural effusion. Reviewed, dictated and finalized at location B.
== END 2022-04-09 08:54 | disposition home or self-care (01) ==
PROVIDERS: PCP Internal Medicine
DX: M19.011 Primary osteoarthritis, right shoulder (principal); M25.411 Effusion, right shoulder; M25.412 Effusion, left shoulder; S42.122A Displaced fracture of acromial process, left shoulder, initial encounter for closed fracture; X58.XXXA Exposure to other specified factors, initial encounter
CPT/HCPCS: 73200

== ENCOUNTER 2022-04-25 22:50 | Inpatient (IN) | payer MEDICARE, MEDICAID, SELFPAY ==
--- NOTE | ~2022-04-25 | US_ITS ---
EXAMINATION: US venous doppler UE RT DATE: 05/02/2022 10:39 INDICATION: Right upper limb swelling and pain. TECHNIQUE: Grayscale images without and with compression and Doppler images of the right upper extrem ity veins were obtained. COMPARISON: None. FINDINGS: The right internal jugular vein, subclavian vein, axillary vein, brachial vein, basilic vein, radial vein, and ulnar vein are patent. The cephalic vein is not visualized. IMPRESSION: 1. Patent right upper extremity veins. No evidence of venous thrombosis. Reviewed, dictated and finalized at location A.
--- NOTE | ~2022-04-25 | XR_ITS ---
EXAMINATION: XR wrist RT 2V DATE: 05/02/2022 09:12 INDICATION: New onset right wrist pain and edema TECHNIQUE: Posteroanterior and lateral views of the right wrist were obtained. COMPARISON: none FINDINGS: Bone alignment is normal. No fracture. Polyarticular osteoarthritis, moderate severity at the first c arpometacarpal and second and third metacarpophalangeal joints and mild at the body of the remaining joints in the right wrist and visualized hand. No erosions. Diffuse soft tissue swelling throughout t he visualized right forearm, wrist and hand. Extensive vascular calcifications along the radial and u lnar arteries. IMPRESSION: 1. Mild to moderate polyarticular osteoarthritis at the right hand and wrist. No acute osseous abnorm ality. Reviewed, dictated and finalized at location A. IMPRESSION: 1. Mild to moderate polyarticular osteoarthritis at the right hand and wrist. N o acute osseous abnormality.
[2022-04-25 22:56] VITALS: BP 156/78; PULSE 70; RESP 16; TEMP 36.3; O2SAT 99
--- NOTE | 2022-04-26 00:57 | ED.GENADULT ---
HPI - General Adult General Chief complaint: Nausea/Vomiting/Diarrhea Stated complaint: n/v x 1 hour Time Seen by Provider: 04/26/22 00:47 History of Present Illness HPI narrative: 81-year-old female presented the emergency department for evaluation after having 4 episodes of emesis and one large bowel movement just prior to arrival. Patient states the emesis started tonight and has since resolved. Patient denies any current nausea vomiting or abdominal pain. Patient has an indwelling Sotelo catheter since September. Patient was treated for urinary tract infection approximately 2 weeks ago. Patient does have chronic hip pain secondary to a degrading hip replacement. Patient does have follow-up with orthopedics scheduled. Patient had an admission on 04/05 due to urinary tract infection. At that time patient had been started on Rocephin and on discharge she was transitioned to Macrobid. Culture grew ESBL resistant to multiple medications. He does appear to be sensitive to Macrobid. Patient has an indwelling Sotelo catheter due to urinary retention. Related Data Home Medications Medication Instructions Recorded Confirmed acetaminophen 325 mg tablet 650 mg PO Q6H PRN Pain (Scale 04/05/22 04/26/22 (Tylenol) Score 1-3) amlodipine 10 mg tablet 10 mg PO DAILY 04/05/22 04/26/22 ascorbic acid (vitamin C) 500 mg 500 mg PO DAILY 04/05/22 04/26/22 tablet baclofen 5 mg tablet 2.5 mg PO BID 04/05/22 04/26/22 bisacodyl 10 mg rectal suppository 10 mg RECTAL DAILY PRN Constipation 04/05/22 04/26/22 cyanocobalamin (vitamin B-12) 100 100 mcg PO DAILY 04/05/22 04/26/22 mcg tablet diclofenac sodium 1 % topical gel 1 ea topical TID PRN Back Pain 04/05/22 04/26/22 (Arthritis Pain (diclofenac)) folic acid 1 mg tablet 1.5 mg PO DAILY 04/05/22 04/26/22 hydrocodone 10 mg-acetaminophen 1 tablet PO Q6H PRN Pain (Scale 04/05/22 04/26/22 325 mg tablet Score 4-6) hydrocortisone 1 % topical cream 1 applic topical BID PRN Itching 04/05/22 04/26/22 levothyroxine 125 mcg tablet 125 mcg PO DAILY 04/05/22 04/26/22 lidocaine 5 % topical patch 1 patch topical DAILY 04/05/22 04/26/22 (Lidoderm) losartan 25 mg tablet 25 mg PO DAILY 04/05/22 04/26/22 magnesium citrate 300 ml PO DAILY PRN Constipation 04/05/22 04/26/22 magnesium hydroxide 400 mg/5 mL 30 ml PO HS PRN Constipation 04/05/22 04/26/22 oral suspension (Milk of Magnesia) magnesium oxide 400 mg (241.3 mg 400 mg PO TID 04/05/22 04/26/22 magnesium) tablet (MagOx) methotrexate sodium 2.5 mg tablet 15 mg PO WEEKLY 04/05/22 04/26/22 metoclopramide HCl 5 mg tablet 5 mg PO BID 04/05/22 04/26/22 multivitamin,tx-minerals 1 tablet PO DAILY 04/05/22 04/26/22 pantoprazole 40 mg tablet,delayed 40 mg PO QAM 04/05/22 04/26/22 release (Protonix) polyethylene glycol 3350 17 gram 17 g PO BID 04/05/22 04/26/22 oral powder packet (Miralax) pravastatin 20 mg tablet 20 mg PO DAILY 04/05/22 04/26/22 prednisone 5 mg tablet 5 mg PO DAILY 04/05/22 04/26/22 sennosides 8.6 mg-docusate sodium 2 tab-cap PO BID 04/05/22 04/26/22 50 mg tablet (Senna Plus) sodium phosphates 19 gram-7 100 ml RECTAL 1XD PRN Constipation 04/05/22 04/26/22 gram/118 mL enema (Fleet Enema) venlafaxine 150 mg tablet,extended 150 mg PO DAILY 04/05/22 04/26/22 release 24 hr vitamin E 400 unit capsule 400 unit PO DAILY 04/05/22 04/26/22 clotrimazole 1 % topical cream 1 applic topical BID 04/26/22 04/26/22 lactulose 20 gram/30 mL oral 20 g PO DAILY 04/26/22 04/26/22 solution loperamide 2 mg capsule 2 mg PO TID PRN Diarrhea 04/26/22 04/26/22 metoprolol succinate 50 mg 50 mg PO DAILY 04/26/22 04/26/22 tablet,extended release 24 hr Allergies Allergy/AdvReac Type Severity Reaction Status Date / Time bacitracin Allergy Unknown Verified 04/25/22 22:59 chlorhexidine Allergy Unknown Verified 04/25/22 22:59 Gramicidins Allergy Unknown Verified 04/25/22 22:59 lisinopril Allergy Unknown Verified 04/25/22 22:59 neomycin Allergy Unknown Verifi
[2022-04-26 01:38] LABS: Appearance Urine Cloudy (Clear); Basophils Absolute Auto 0.1 K/mm3 (0.0-0.1); Basophils Percent Auto 0.2 % (0.2-1.2); Bilirubin Urine Negative (Negative); Blood Urine 2+ (Negative); Eosinophils Absolute Auto 0.2 K/mm3 (0-0.3); Eosinophils Percent Auto 0.6 % (0-4.4); Glucose Urine UA Negative (Negative); Hematocrit 39.1 % (37.0-47.0); Hemoglobin 12.3 g/dL (12.0-15.0); Immature Granulocyte Absolute 0.17 K/mm3 (0.00-0.031); Immature Granulocyte Percent A 0.6 % (0-0.5); Ketones Urine Negative (Negative); Leukocyte Esterase Ur 3+ LEU/UL (Negative); Lymphocytes Absolute Auto 2.08 K/mm3 (0.9-3.2); Lymphocytes Percent Auto 7.3 % (18.3-44.2); Mean Corpuscular HGB Conc 31.5 g/dl (32-36); Mean Corpuscular Hemoglobin 29.9 pg (26-34); Mean Corpuscular Volume 95.1 fl (80-100); Mean Platelet Volume 10.3 fl (7.4-10.4); Monocytes Absolute Auto 1.5 K/mm3 (0.1-0.6); Monocytes Percent Auto 5.1 % (2.6-8.5); Neutrophils Absolute Auto 24.6 K/mm3 (1.3-6.7); Neutrophils Percent Auto 86.2 % (45.5-73.1); Nitrate Urine Positive (Negative); Platelet Count Result 444 k/mm3 (150-375); Protein Urine 1+ mg/dL (Negative); Red Blood Count 4.11 M/mm3 (4.2-5.4); Urobilinogen Urine 0.2 mg/dL (<2.0); White Blood Count 28.6 K/mm3 (4.5-10.0)
[2022-04-26 01:41] LABS: Add Urine Microscopic? YES; Color Urine Light Yellow (Yellow)
[2022-04-26 01:44] LABS: Bacteria Urine 4+ /hpf; Mucus Urine Rare /lpf; WBC Clumps Urine Present /HPF; WBC Urine >75 /hpf
[2022-04-26 01:46] LABS: Alanine Aminotransferase 26 U/L (6-35); Albumin Level 4.2 g/dL (3.5-5.1); Alkaline Phosphatase 51 U/L (38-126); Anion Gap 8 mmol/L (8-16); Aspartate Amino Transferase 30 U/L (14-36); Bilirubin,Total 0.4 mg/dL (0.2-1.3); Blood Urea Nitrogen 37 mg/dL (7-17); Calcium 10.5 mg/dL (8.4-10.2); Carbon Dioxide 33 mmol/L (22-30); Chloride 95 mmol/L (98-107); Estimated CRCL calculation 33 ml/min; Estimated Glomerular Filt Rate 48; Glucose 135 mg/dL (65-110); Lipase 119 U/L (23-300); Potassium 4.4 mmol/L (3.4-5.0); Sodium 136 mmol/L (137-145)
--- NOTE | 2022-04-26 02:10 | PM.IMHP ---
H&P: HPI History of Present Illness Date/Time: 04/26/22 02:10 Chief Complaint: nausea and vomiting Narrative: this is a 81-year-old female with past medical history significant for paraplegia, neurogenic bladder, chronic indwelling Sotelo catheter, bedbound, wheelchair ridden, hypothyroidism, gastroesophageal reflux disease, dyslipidemia. patient was brought to the emergency room for evaluation due to nausea vomiting unable to keep anything down patient denies any fevers, rigors, chills, no abdominal pain. patient has been recently discharged after being treated for urinary tract infection however urine culture identification and sensitivity was significant for multi resistant E coli. Preliminary workup revealed a cloudy urine present in Sotelo catheter tubing and bag a UA was significant for numerous WBCs Review of Systems Review of Systems: nausea, vomiting, generalized malaise. Constitutional: Constitutional: Denies chills, Reports fatigue, Denies fever(s), Reports malaise, Reports night sweats, Reports poor appetite and Reports weakness Comments: Generalized malaise Eyes: Eyes: Denies change in vision ENT: Denies dysphagia and Denies odynophagia Cardiovascular: Cardiovascular: Denies chest pain, Denies irregular heart rhythm, Denies lightheadedness and Denies palpitations Comments: patient is bed ridden Respiratory: Respiratory: Denies chest congestion, Denies cough and Denies excessive phlegm production Gastrointestinal: Gastrointestinal: Denies abdominal pain, Denies dyspepsia, Denies heartburn, Reports nausea and Reports vomiting Genitourinary: Genitourinary: Reports other ( chronic Sotelo catheter) Musculoskeletal: Musculoskeletal: Reports other ( patient is bed ridden bilateral footdrop) Integumentary/Breasts: Skin/Breast: Denies rash Neurologic: Reports other ( paraplegia) Psychiatric: Psychiatric: Reports no additional psychiatric complaints and Reports as per HPI Endocrine: Endocrine: Denies cold intolerance, Denies fatigue, Denies flushing, Denies heat intolerance, Denies polyphagia, Denies polydipsia and Denies palpitations Hematologic/Lymphatic: Hematologic/Lymphatic: Reports no additional hematologic/lymphatic complaints and Reports as per HPI Allergic/Immunologic: Allergic/Immunologic: Reports no additional allergic/immunologic complaints and Reports as per HPI PMFSH Past Medical History Medical History (Updated 04/26/22 @ 04:23 by Roz Villegas MD) Chronic indwelling Sotelo catheter COVID (10/2021) Dementia Essential hypertension GERD (gastroesophageal reflux disease) Hyperlipidemia Hypothyroidism Rheumatoid arthritis Urinary retention Surgical History Surgical History Status post cataract extraction of both eyes with insertion of intraocular lens Family History Family History (Updated 04/26/22 @ 04:30 by Maxi Madrid RN) Mother COPD (chronic obstructive pulmonary disease) Hypertension Sibling Cancer Other Breast cancer Social History Social History Smoking status: Never smoker Alcohol intake: never Substance use: never Substance use type: does not use Additional living arrangements comments: [facility] Spiritual care concerns: No Meds Home Medications and Allergies Home Medications Medication Instructions Recorded Confirmed Type acetaminophen 325 mg tablet 650 mg PO Q6H PRN Pain (Scale 04/05/22 04/26/22 History (Tylenol) Score 1-3) amlodipine 10 mg tablet 10 mg PO DAILY 04/05/22 04/26/22 History ascorbic acid (vitamin C) 500 mg 500 mg PO DAILY 04/05/22 04/26/22 History tablet baclofen 5 mg tablet 2.5 mg PO BID 04/05/22 04/26/22 History bisacodyl 10 mg rectal suppository 10 mg RECTAL DAILY PRN Constipation 04/05/22 04/26/22 History cyanocobalamin (vitamin B-12) 100 100 mcg PO DAILY 04/05/22 04/26/22 History
[2022-04-26] MEDS: SODIUM CHLORIDE 0.9% IV 1,000 ML 100 ML IV CONT ×2 (02:55→13:57)
[2022-04-26 03:59] VITALS: BP 160/54; PULSE 63; RESP 18; O2SAT 97
--- NOTE | 2022-04-26 04:10 | ADMGEN ---
This patient, Jana Duarte, was admitted to Medical Room 246-. Patient/family oriented to hospital policies and general routines including ID bracelet, bed and alarms, visiting hours, pain management, procedures, bathroom and other care routines, personal items, smoking policy, room service/diet, and visiting hours. Information on how to activate the Rapid Response Team has been discussed. Patient/Family are encouraged to report perceived risks to care and to ask questions if they do not understand what they are told or what they should do.
[2022-04-26 04:14] VITALS: BP 146/65; PULSE 69; RESP 14; TEMP 36.6; O2SAT 100
[2022-04-26 04:19] VITALS: BMI 31.7
[2022-04-26] MEDS: ENOXAPARIN 40 MG/0.4 ML SYRINGE SUB-Q (08:31)
[2022-04-26 14:48] VITALS: BP 141/63; PULSE 65; RESP 16; TEMP 36.3; O2SAT 98
[2022-04-26 20:54] VITALS: BP 143/58; PULSE 63; RESP 16; TEMP 36.4; O2SAT 98
[2022-04-27] MEDS: SODIUM CHLORIDE 0.9% IV 1,000 ML 100 ML IV CONT ×3 (01:13→21:47)
[2022-04-27] MEDS: traMADol HCL (*CRX) 50 MG TABLET PO (04:15)
[2022-04-27 05:54] VITALS: BP 150/57; PULSE 63; RESP 14; TEMP 36.8; O2SAT 100
[2022-04-27] MEDS: ENOXAPARIN 40 MG/0.4 ML SYRINGE SUB-Q (08:51)
--- NOTE | 2022-04-27 12:10 | PM.IMPN ---
Progress Note: A&P Assessment and Plan (1) Acute UTI: Code(s): N39.0 - Urinary tract infection, site not specified Status: Acute Assessment and Plan: patient is started on imipenem recurrent UTI Cultures noted. (2) N&V (nausea and vomiting): Qualifiers: Vomiting type: unspecified Qualified Code(s): R11.2 - Nausea with vomiting, unspecified Code(s): R11.2 - Nausea with vomiting, unspecified Status: Acute Assessment and Plan: improving (3) GERD (gastroesophageal reflux disease): Code(s): K21.9 - Gastro-esophageal reflux disease without esophagitis Status: Acute Assessment and Plan: PPI (4) Chronic indwelling Sotelo catheter: Code(s): Z97.8 - Presence of other specified devices Status: Acute Assessment and Plan: catheter exchanged in emergency room (5) Rheumatoid arthritis: Code(s): M06.9 - Rheumatoid arthritis, unspecified Status: Acute Assessment and Plan: patient is on daily prednisone 5 mg Subjective Date/time seen: 04/27/22 12:10 Feeling better. No new complaints today. No abdominal pain Exam Narrative: patient is laying in a stretcher Const: General: comfortable, no acute distress, well developed, alert, awake, ill appearing chronically and tired appearing Nutritional Appearance: average body habitus Orientation/consciousness: patient oriented x3 Other: generalized pallor HENMT: Head: normal to inspection, normocephalic and atraumatic Ears: hearing grossly normal bilaterally Face and sinus: normal facial exam Eyes: General: appearance normal, both eyes and all related structures Pupils: Equal, round and reactive pupils present EOM: EOMs intact bilaterally Neck: Neck: full ROM, no lymphadenopathy and no JVD Thyroid: thyroid normal Lymphatic: no lymphadenopathy noted Resp: Effort & Inspection: normal respiratory effort and able to speak in complete sentences Auscultation: clear to auscultation bilaterally Cardio: Jugular venous distension: no JVD Rate: regular rate Rhythm: regular rhythm Heart sounds: S1 normal heart sound present and S2 normal heart sound present : General: Yes deferred Skin: Rashes: no rashes Wounds: no wounds Neuro: General: patient oriented x3 and CN's II-XI intact bilaterally Cranial nerves: Yes CN's II-XII intact bilaterally and Yes Equal, round and reactive pupils present Cognition (Neuro): normal cognition Speech: normal speech Gait exam (Neuro): Other gait observations present ( paraplegia) Motor exam (neuro): 5/5 motor strength present throughout Extrem: General: edema bilateral and muscle atrophy ( bilateral lower extremities) Objective Data Vital Signs Vital Signs: Vital Signs - 24 hr 04/26/22 14:48 04/26/22 20:54 04/27/22 05:54 Temperature 97.3 F L 97.6 F 98.3 F Pulse Rate 65 63 63 Respiratory Rate 16 16 14 Blood Pressure 141/63 H 143/58 H 150/57 H Pulse Oximetry 98 98 100 Intake/Output Intake/Output: Intake & Output 04/24/22 04/25/22 04/26/22 04/27/22 23:59 23:59 23:59 23:59 Intake Total 3420 1740 Output Total 1775 2300 Balance 1645 -560 Meds/Results Medications: Active Medications Generic Name Dose Route Start Last Admin Trade Name Freq PRN Reason Stop Dose Admin Enoxaparin Sodium 40 mg 04/26/22 09:00 04/27/22 08:51 Enoxaparin 40 Mg/0.4 Ml Syringe SUB-Q 40 mg DAILY RONA Administration Sodium Chloride 1,000 mls @ 100 mls/hr 04/26/22 02:15 04/27/22 11:47 Normal Saline Iv IV CONT 100 mls/hr .Q10H RONA Administration Acetaminophen 1,000 mg in 100 mls @ 400 mls/hr 04/27/22 04:02 04/27/22 09:10 Ofirmev 1,000 Mg Ivpb IVPB 04/28/22 04:01 Infused Q6H PRN Infusion Pain Rated 1-3 Ondansetron HCl 4 mg 04/26/22 02:12 Ondansetron Inj 4 Mg/2 Ml Vial IV PUSH Q4H PRN Nausea
[2022-04-27 14:00] VITALS: BP 140/93; PULSE 80; RESP 16; TEMP 36.5; O2SAT 98
[2022-04-27] MEDS: polyethylene glycoL 3350 17 GM POWD.PACK PO (16:22)
[2022-04-27] MEDS: LORazepam (*CRX) 0.5 MG TABLET 0.25 MG PO (16:22)
[2022-04-27 19:56] VITALS: BP 152/79; PULSE 62; RESP 18; TEMP 36.1; O2SAT 99
[2022-04-28] MEDS: traMADol HCL (*CRX) 50 MG TABLET PO ×3 (02:20→21:50)
[2022-04-28 03:39] VITALS: BP 168/56; PULSE 68; RESP 18; TEMP 36.6; O2SAT 94
[2022-04-28 06:12] LABS: Hematocrit 32.6 % (37.0-47.0); Hemoglobin 10.1 g/dL (12.0-15.0); Mean Corpuscular Hemoglobin 29.8 pg (26-34); Mean Corpuscular Volume 96.2 fl (80-100); Mean Platelet Volume 10.1 fl (7.4-10.4); Platelet Count Result 277 k/mm3 (150-375); Red Blood Count 3.39 M/mm3 (4.2-5.4); Red Cell Distribution Width 16.2 % (11.5-14.5); White Blood Count 7.6 K/mm3 (4.5-10.0)
[2022-04-28 06:30] LABS: Anion Gap 6 mmol/L (8-16); Blood Urea Nitrogen 22 mg/dL (7-17); Calcium 9.7 mg/dL (8.4-10.2); Carbon Dioxide 26 mmol/L (22-30); Chloride 105 mmol/L (98-107); Estimated CRCL calculation 42 ml/min; Estimated Glomerular Filt Rate 60; Glucose 96 mg/dL (65-110); Potassium 3.6 mmol/L (3.4-5.0); Sodium 137 mmol/L (137-145)
[2022-04-28] MEDS: ENOXAPARIN 40 MG/0.4 ML SYRINGE SUB-Q (08:33)
[2022-04-28] MEDS: SODIUM CHLORIDE 0.9% IV 1,000 ML 100 ML IV CONT (14:27)
[2022-04-28 14:34] VITALS: BP 150/75; PULSE 65; RESP 16; TEMP 36.7; O2SAT 100
--- NOTE | 2022-04-28 15:35 | PM.IMPN ---
Progress Note: A&P Assessment and Plan (1) Acute UTI: Code(s): N39.0 - Urinary tract infection, site not specified Status: Acute Assessment and Plan: patient is started on imipenem recurrent UTI Cultures noted. (2) N&V (nausea and vomiting): Qualifiers: Vomiting type: unspecified Qualified Code(s): R11.2 - Nausea with vomiting, unspecified Code(s): R11.2 - Nausea with vomiting, unspecified Status: Acute Assessment and Plan: improving (3) GERD (gastroesophageal reflux disease): Code(s): K21.9 - Gastro-esophageal reflux disease without esophagitis Status: Acute Assessment and Plan: PPI (4) Chronic indwelling Sotelo catheter: Code(s): Z97.8 - Presence of other specified devices Status: Acute Assessment and Plan: catheter exchanged in emergency room (5) Rheumatoid arthritis: Code(s): M06.9 - Rheumatoid arthritis, unspecified Status: Acute Assessment and Plan: patient is on daily prednisone 5 mg Plan 04/28/2022 interval history: patient remains clinically stable had no complaint, her is present, patient with UTI ESBL being treated with imipenem 3, [facility] pharmacy ID suspect patient patient has a complicated UTI and recommended to stop the imipenem and place the patient on ertapenem for total of 7 days 3, will continue to monitor. Subjective Date/time seen: 04/28/22 15:35 04/28/2022 interval history: patient remains clinically stable had no complaint, her is present, patient with UTI ESBL being treated with imipenem 12/28, [facility] pharmacy ID suspect patient patient has a complicated UTI and recommended to stop the imipenem and place the patient on ertapenem for total of 7 days 37, will continue to monitor. Review of Systems Constitutional: Constitutional: Denies chills, Denies fatigue, Denies fever(s), Reports malaise, Reports night sweats, Reports poor appetite and Reports weakness Exam Narrative: elderly frail Patient is comfortable, NAD HEENT: eyes are clear and none icteric LUNGS: normal respiratory effort ABD: not distended Lower extremities: no edema SKIN: nonjaundiced Neuro: grossly intact. Objective Data Vital Signs Vital Signs: Vital Signs - 24 hr 04/27/22 19:56 04/28/22 03:39 04/28/22 08:30 Temperature 97 F L 97.8 F Pulse Rate 62 68 Respiratory Rate 18 18 Blood Pressure 152/79 H 168/56 H Pulse Oximetry 99 94 Oxygen Delivery Room Air 04/28/22 14:34 Temperature 98.0 F Pulse Rate 65 Respiratory Rate 16 Blood Pressure 150/75 H Pulse Oximetry 100 Oxygen Delivery Intake/Output Intake/Output: Intake & Output 04/25/22 04/26/22 04/27/22 04/28/22 23:59 23:59 23:59 23:59 Intake Total 3420 4210 2760 Output Total 1775 4125 1500 Balance 1645 85 1260 Meds/Results Medications: Active Medications Generic Name Dose Route Start Last Admin Trade Name Freq PRN Reason Stop Dose Admin Enoxaparin Sodium 40 mg 04/26/22 09:00 04/28/22 08:33 Enoxaparin 40 Mg/0.4 Ml Syringe SUB-Q 40 mg DAILY RONA Administration Sodium Chloride 1,000 mls @ 100 mls/hr 04/26/22 02:15 04/28/22 14:27 Normal Saline Iv IV CONT 100 mls/hr .Q10H RONA Administration Imipenem/Cilastatin Sodium 400 100 mls @ 300 mls/hr 04/27/22 18:00 04/28/22 12:15 mg/ Dextrose IVPB Infused Q6HR RONA Infusion Acetaminophen 1,000 mg in 100 mls @ 400 mls/hr 04/28/22 06:06 04/28/22 12:53 Ofirmev 1,000 Mg Ivpb IVPB 04/29/22 06:05 400 mls/hr Q6H PRN Administration Pain Rated 1-3 Ondansetron HCl 4 mg 04/26/22 02:12 Ondansetron Inj 4 Mg/2 Ml Vial IV PUSH Q4H PRN Nausea Polyethylene Glycol 17 gm 04/27/22 16:06 04/27/22 16:22 Polyethylene Glycol 3350 17 Gm Powd.Pack PO 17 gm QAM PRN Administration Constipation Tramadol HCl 50 mg 04/27/22 21:56 04/28/22 08:59 Tramadol Hcl (*Crx) 50 Mg Tablet PO 50 mg Q6H
[2022-04-28 22:02] VITALS: BP 157/80; PULSE 75; RESP 16; TEMP 36.5; O2SAT 96
[2022-04-29 00:40] VITALS: TEMP 37
[2022-04-29] MEDS: SODIUM CHLORIDE 0.9% IV 1,000 ML 100 ML IV CONT ×2 (04:41→14:57)
[2022-04-29] MEDS: traMADol HCL (*CRX) 50 MG TABLET PO (06:04)
[2022-04-29 06:12] LABS: Hematocrit 32.5 % (37.0-47.0); Hemoglobin 10.5 g/dL (12.0-15.0); Mean Corpuscular HGB Conc 32.3 g/dl (32-36); Mean Corpuscular Hemoglobin 30.3 pg (26-34); Mean Corpuscular Volume 93.9 fl (80-100); Mean Platelet Volume 9.9 fl (7.4-10.4); Platelet Count Result 317 k/mm3 (150-375); Red Blood Count 3.46 M/mm3 (4.2-5.4); Red Cell Distribution Width 15.9 % (11.5-14.5); White Blood Count 8.4 K/mm3 (4.5-10.0)
[2022-04-29 06:24] LABS: Anion Gap 4 mmol/L (8-16); Blood Urea Nitrogen 20 mg/dL (7-17); Calcium 9.7 mg/dL (8.4-10.2); Carbon Dioxide 29 mmol/L (22-30); Chloride 104 mmol/L (98-107); Estimated CRCL calculation 42 ml/min; Estimated Glomerular Filt Rate 60; Glucose 94 mg/dL (65-110); Potassium 3.5 mmol/L (3.4-5.0); Sodium 137 mmol/L (137-145)
[2022-04-29 07:11] VITALS: BP 138/70; PULSE 76; RESP 16; TEMP 37.2; O2SAT 100
[2022-04-29] MEDS: ENOXAPARIN 40 MG/0.4 ML SYRINGE SUB-Q (08:28)
[2022-04-29] MEDS: LIDOCAINE 5% PATCH 3 PATCH TRANSDERM (10:40)
[2022-04-29] MEDS: HYDROcodone/acetaminophen (*CRX) 5-325 MG TABLET 1 TAB PO (11:21)
[2022-04-29] MEDS: CYCLOBENZAPRINE HCL 5 MG TABLET PO (11:21)
--- NOTE | 2022-04-29 12:20 | PM.IMPN ---
Progress Note: A&P Assessment and Plan (1) Acute UTI: Code(s): N39.0 - Urinary tract infection, site not specified Status: Acute Assessment and Plan: patient is started on imipenem recurrent UTI Cultures noted. (2) N&V (nausea and vomiting): Qualifiers: Vomiting type: unspecified Qualified Code(s): R11.2 - Nausea with vomiting, unspecified Code(s): R11.2 - Nausea with vomiting, unspecified Status: Acute Assessment and Plan: improving (3) GERD (gastroesophageal reflux disease): Code(s): K21.9 - Gastro-esophageal reflux disease without esophagitis Status: Acute Assessment and Plan: PPI (4) Chronic indwelling Sotelo catheter: Code(s): Z97.8 - Presence of other specified devices Status: Acute Assessment and Plan: catheter exchanged in emergency room (5) Rheumatoid arthritis: Code(s): M06.9 - Rheumatoid arthritis, unspecified Status: Acute Assessment and Plan: patient is on daily prednisone 5 mg Plan 04/28/2022 interval history: patient remains clinically stable had no complaint, her is present, patient with UTI ESBL being treated with imipenem 3/7, [facility] pharmacy ID suspect patient patient has a complicated UTI and recommended to stop the imipenem and place the patient on ertapenem for total of 7 days 12/28, will continue to monitor. 04/29/2022 interval history: patient remains clinically stable has no complaint, other than chronic back pain which is not controle with tramadol, will stop tramado and add norco 5/325 q4-6 PRN as well Cyclobenzaprine 5mg q8 PRN, patient with UTI ESBL was treated with imipenem 3/7, [facility] pharmacy ID suspect patient has a complicated UTI and recommended to stop the imipenem and place the patient on ertapenem for total of 7 days 7, will continue to monitor. Subjective Date/time seen: 04/29/22 12:20 04/29/2022 interval history: patient remains clinically stable has no complaint, other than chronic back pain which is not controle with tramadol, will stop tramado and add norco 5/325 q4-6 PRN as well Cyclobenzaprine 5mg q8 PRN, patient with UTI ESBL was treated with imipenem 3/7, [facility] pharmacy ID suspect patient has a complicated UTI and recommended to stop the imipenem and place the patient on ertapenem for total of 7 days 01/28, will continue to monitor. Review of Systems Constitutional: Constitutional: Denies chills, Denies fatigue, Denies fever(s), Reports malaise, Reports night sweats, Reports poor appetite and Reports weakness Exam Narrative: elderly frail Patient is comfortable, NAD HEENT: eyes are clear and none icteric LUNGS: normal respiratory effort ABD: not distended Lower extremities: no edema SKIN: nonjaundiced Neuro: grossly intact. Objective Data Vital Signs Vital Signs: Vital Signs - 24 hr 04/28/22 14:34 04/28/22 22:02 04/29/22 00:40 Temperature 98.0 F 97.7 F 98.6 F Pulse Rate 65 75 Respiratory Rate 16 16 Blood Pressure 150/75 H 157/80 H Pulse Oximetry 100 96 Oxygen Delivery 04/29/22 07:11 04/29/22 07:46 Temperature 98.9 F Pulse Rate 76 Respiratory Rate 16 Blood Pressure 138/70 Pulse Oximetry 100 Oxygen Delivery Room Air Intake/Output Intake/Output: Intake & Output 04/26/22 04/27/22 04/28/22 04/29/22 23:59 23:59 23:59 23:59 Intake Total 3420 4210 3440 1760 Output Total 1775 4125 3050 3000 Balance 1645 85 390 -1240 Meds/Results Medications: Active Medications Generic Name Dose Route Start Last Admin Trade Name Freq PRN Reason Stop Dose Admin Hydrocodone Bitart/Acetaminophen 1 tab 04/29/22 11:11 04/29/22 11:21 Hydrocodone/Acetaminophen (*Crx) 5-325 Mg Tablet PO 1 tab Q4H PRN Administration Pain Rated 4-6 Cyclobenzaprine HCl 5 mg 04/29/22 11:11 04/29/22 11:21 Cyclobenzaprine Hcl 5 Mg Tablet PO 5 mg Q8H PRN Administration Muscle Spasm Enoxaparin Sodium 40 mg 07
[2022-04-29 14:00] VITALS: BP 146/76; PULSE 68; RESP 18; TEMP 35.9; O2SAT 100
[2022-04-29 21:24] VITALS: BP 150/67; PULSE 66; RESP 18; TEMP 36.4; O2SAT 97
[2022-04-30] MEDS: SODIUM CHLORIDE 0.9% IV 1,000 ML 100 ML IV CONT ×3 (02:53→20:41)
[2022-04-30 04:08] VITALS: BP 166/74; PULSE 87; RESP 18; TEMP 36.3; O2SAT 100
[2022-04-30 05:47] LABS: Hematocrit 32.5 % (37.0-47.0); Hemoglobin 10.2 g/dL (12.0-15.0); Mean Corpuscular HGB Conc 31.4 g/dl (32-36); Mean Corpuscular Hemoglobin 30.1 pg (26-34); Mean Corpuscular Volume 95.9 fl (80-100); Platelet Count Result 291 k/mm3 (150-375); Red Blood Count 3.39 M/mm3 (4.2-5.4); Red Cell Distribution Width 15.9 % (11.5-14.5)
[2022-04-30] MEDS: HYDROcodone/acetaminophen (*CRX) 5-325 MG TABLET 1 TAB PO ×5 (05:49→22:30)
[2022-04-30 05:57] LABS: Anion Gap 4 mmol/L (8-16); Blood Urea Nitrogen 18 mg/dL (7-17); Calcium 9.8 mg/dL (8.4-10.2); Carbon Dioxide 28 mmol/L (22-30); Chloride 105 mmol/L (98-107); Estimated CRCL calculation 42 ml/min; Estimated Glomerular Filt Rate 60; Glucose 99 mg/dL (65-110); Potassium 3.5 mmol/L (3.4-5.0); Sodium 137 mmol/L (137-145)
[2022-04-30] MEDS: CYCLOBENZAPRINE HCL 5 MG TABLET PO ×2 (09:21→18:41)
[2022-04-30] MEDS: ENOXAPARIN 40 MG/0.4 ML SYRINGE SUB-Q (09:21)
[2022-04-30] MEDS: LIDOCAINE 5% PATCH 3 PATCH TRANSDERM (09:22)
--- NOTE | 2022-04-30 11:38 | PM.IMPN ---
Progress Note: A&P Assessment and Plan (1) Acute UTI: Code(s): N39.0 - Urinary tract infection, site not specified Status: Acute Assessment and Plan: patient is started on imipenem recurrent UTI Cultures noted. (2) N&V (nausea and vomiting): Qualifiers: Vomiting type: unspecified Qualified Code(s): R11.2 - Nausea with vomiting, unspecified Code(s): R11.2 - Nausea with vomiting, unspecified Status: Acute Assessment and Plan: improving (3) GERD (gastroesophageal reflux disease): Code(s): K21.9 - Gastro-esophageal reflux disease without esophagitis Status: Acute Assessment and Plan: PPI (4) Chronic indwelling Sotelo catheter: Code(s): Z97.8 - Presence of other specified devices Status: Acute Assessment and Plan: catheter exchanged in emergency room (5) Rheumatoid arthritis: Code(s): M06.9 - Rheumatoid arthritis, unspecified Status: Acute Assessment and Plan: patient is on daily prednisone 5 mg Plan 04/28/2022 interval history: patient remains clinically stable had no complaint, her is present, patient with UTI ESBL being treated with imipenem 12/28, [facility] pharmacy ID suspect patient patient has a complicated UTI and recommended to stop the imipenem and place the patient on ertapenem for total of 7 days 12/28, will continue to monitor. 04/29/2022 interval history: patient remains clinically stable has no complaint, other than chronic back pain which is not controle with tramadol, will stop tramado and add norco 5/325 q4-6 PRN as well Cyclobenzaprine 5mg q8 PRN, patient with UTI ESBL was treated with imipenem 12/28, [facility] pharmacy ID suspect patient has a complicated UTI and recommended to stop the imipenem and place the patient on ertapenem for total of 7 days 01/28, will continue to monitor. 04/30/2022 interval history: patient remains clinically stable has no complaint, other than chronic back pain which is not control with tramadol, stopped tramadol and added norco 5/325 q4-6 PRN as well Cyclobenzaprine 5mg q8 PRN, patient continued to complain of back pain and today tells a patient also has a fracture on right shoulder and rotator cuff tear on the left shoulder, will add gabapentin 100 mg t.i.d., patient also has history drop foot and bed-bound, patient with UTI ESBL was treated with imipenem 12/28, [facility] pharmacy ID suspect patient has a complicated UTI and recommended to stop the imipenem and place the patient on ertapenem for total of 7 days 02/27, will continue to monitor. Subjective Date/time seen: 04/30/22 11:38 04/30/2022 interval history: patient remains clinically stable has no complaint, other than chronic back pain which is not control with tramadol, stopped tramadol and added norco 5/325 q4-6 PRN as well Cyclobenzaprine 5mg q8 PRN, patient continued to complain of back pain and today tells a patient also has a fracture on right shoulder and rotator cuff tear on the left shoulder, will add gabapentin 100 mg t.i.d., patient also has history drop foot and bed-bound, patient with UTI ESBL was treated with imipenem 12/28, [facility] ID suspect patient has a complicated UTI and recommended to stop the imipenem and place the patient on ertapenem for total of 7 days 02/27, will continue to monitor. Review of Systems Constitutional: Constitutional: Denies chills, Denies fatigue, Denies fever(s), Reports malaise, Reports night sweats, Reports poor appetite and Reports weakness Exam Narrative: elderly frail Patient is comfortable, NAD HEENT: eyes are clear and none icteric LUNGS: normal respiratory effort ABD: not distended Lower extremities: no edema SKIN: nonjaundiced Neuro: grossly intact. Objective Data Vital Signs Vital Signs: Vital Signs - 24 hr 04/29/22 14:00 04/29/22 21:24 04/30/22 04:08 Temperature 96.7 F L 97.6 F 97.4 F L Pulse Rate 68 66 87 Respiratory Rate 18 18 18 Blood Pre
[2022-04-30] MEDS: GABAPENTIN 100 MG CAPSULE PO ×2 (12:09→16:18)
[2022-04-30 14:00] VITALS: BP 151/72; PULSE 73; RESP 16; TEMP 36.2; O2SAT 100
[2022-04-30] MEDS: ERTAPENEM 1 GM/NS 50 ML 1 GM/50 ML BAG IVPB (16:18)
[2022-04-30 21:29] VITALS: BP 173/74; PULSE 73; RESP 18; TEMP 36.4; O2SAT 100
[2022-05-01] MEDS: HYDROcodone/acetaminophen (*CRX) 5-325 MG TABLET 1 TAB PO ×4 (03:44→16:01)
[2022-05-01 03:46] VITALS: BP 155/86; PULSE 72; RESP 20; TEMP 36.3; O2SAT 100
[2022-05-01 06:08] LABS: Hematocrit 30.8 % (37.0-47.0); Hemoglobin 10.2 g/dL (12.0-15.0); Mean Corpuscular HGB Conc 33.1 g/dl (32-36); Mean Corpuscular Hemoglobin 30.9 pg (26-34); Mean Corpuscular Volume 93.3 fl (80-100); Platelet Count Result 269 k/mm3 (150-375); Red Cell Distribution Width 15.9 % (11.5-14.5)
[2022-05-01 06:26] LABS: Anion Gap 4 mmol/L (8-16); Blood Urea Nitrogen 16 mg/dL (7-17); Calcium 9.5 mg/dL (8.4-10.2); Carbon Dioxide 28 mmol/L (22-30); Chloride 104 mmol/L (98-107); Estimated CRCL calculation 42 ml/min; Estimated Glomerular Filt Rate 60; Glucose 95 mg/dL (65-110); Potassium 3.7 mmol/L (3.4-5.0); Sodium 136 mmol/L (137-145)
[2022-05-01] MEDS: SODIUM CHLORIDE 0.9% IV 1,000 ML 100 ML IV CONT ×2 (06:38→17:10)
[2022-05-01] MEDS: CYCLOBENZAPRINE HCL 5 MG TABLET PO (06:42)
[2022-05-01 08:00] VITALS: PULSE 72; RESP 20; O2SAT 100
[2022-05-01] MEDS: ENOXAPARIN 40 MG/0.4 ML SYRINGE SUB-Q (08:03)
[2022-05-01] MEDS: GABAPENTIN 100 MG CAPSULE PO ×3 (08:03→17:13)
[2022-05-01] MEDS: LIDOCAINE 5% PATCH 3 PATCH TRANSDERM (08:03)
--- NOTE | 2022-05-01 11:01 | PM.IMPN ---
Progress Note: A&P Assessment and Plan (1) Acute UTI: Code(s): N39.0 - Urinary tract infection, site not specified Status: Acute Assessment and Plan: patient is started on imipenem recurrent UTI Cultures noted. (2) N&V (nausea and vomiting): Qualifiers: Vomiting type: unspecified Qualified Code(s): R11.2 - Nausea with vomiting, unspecified Code(s): R11.2 - Nausea with vomiting, unspecified Status: Acute Assessment and Plan: improving (3) GERD (gastroesophageal reflux disease): Code(s): K21.9 - Gastro-esophageal reflux disease without esophagitis Status: Acute Assessment and Plan: PPI (4) Chronic indwelling Sotelo catheter: Code(s): Z97.8 - Presence of other specified devices Status: Acute Assessment and Plan: catheter exchanged in emergency room (5) Rheumatoid arthritis: Code(s): M06.9 - Rheumatoid arthritis, unspecified Status: Acute Assessment and Plan: patient is on daily prednisone 5 mg Plan 04/28/2022 interval history: patient remains clinically stable had no complaint, her is present, patient with UTI ESBL being treated with imipenem 12/28, [facility] ID suspect patient patient has a complicated UTI and recommended to stop the imipenem and place the patient on ertapenem for total of 7 days 12/28, will continue to monitor. 04/29/2022 interval history: patient remains clinically stable has no complaint, other than chronic back pain which is not controle with tramadol, will stop tramado and add norco 5/325 q4-6 PRN as well Cyclobenzaprine 5mg q8 PRN, patient with UTI ESBL was treated with imipenem 12/28, [facility] ID suspect patient has a complicated UTI and recommended to stop the imipenem and place the patient on ertapenem for total of 7 days 01/28, will continue to monitor. 04/30/2022 interval history: patient remains clinically stable has no complaint, other than chronic back pain which is not control with tramadol, stopped tramadol and added norco 5/325 q4-6 PRN as well Cyclobenzaprine 5mg q8 PRN, patient continued to complain of back pain and today tells a patient also has a fracture on right shoulder and rotator cuff tear on the left shoulder, will add gabapentin 100 mg t.i.d., patient also has history drop foot and bed-bound, patient with UTI ESBL was treated with imipenem 12/28, [facility] ID suspect patient has a complicated UTI and recommended to stop the imipenem and place the patient on ertapenem for total of 7 days 02/27, will continue to monitor. 05/01/2022 interval history: patient remains clinically stable has no complaint, other than chronic back pain which is not control with tramadol, stopped tramadol and added norco 5/325 q4-6 PRN as well Cyclobenzaprine 5mg q8 PRN, patient continued to complain of back pain and on 04/30 told patient also has a fracture on right shoulder and rotator cuff tear on the left shoulder, added gabapentin 100 mg t.i.d., patient also has history drop foot and bed-bound, today patient stats her pain is little better, will CPM may increase gabapentin is 1 week, patient with UTI ESBL was treated with imipenem 12/28, [facility] ID suspect patient has a complicated UTI and recommended to stop the imipenem and place the patient on ertapenem for total of 7 days 03/30, will continue to monitor. Subjective Date/time seen: 05/01/22 11:01 05/01/2022 interval history: patient remains clinically stable has no complaint, other than chronic back pain which is not control with tramadol, stopped tramadol and added norco 5/325 q4-6 PRN as well Cyclobenzaprine 5mg q8 PRN, patient continued to complain of back pain and on 04/30 told patient also has a fracture on right shoulder and rotator cuff tear on the left shoulder, added gabapentin 100 mg t.i.d., patient also has history drop foot and bed-bound, today patient stats her pain is little better, will CPM may increase breanna
[2022-05-01 14:00] VITALS: BP 145/91; PULSE 81; RESP 20; TEMP 37.4; O2SAT 98
[2022-05-01] MEDS: ERTAPENEM 1 GM/NS 50 ML 1 GM/50 ML BAG IVPB (17:11)
[2022-05-01 19:15] VITALS: BP 147/64; PULSE 70; RESP 18; TEMP 36.7; O2SAT 98
[2022-05-02] MEDS: SODIUM CHLORIDE 0.9% IV 1,000 ML 100 ML IV CONT ×2 (03:38→16:33)
[2022-05-02] MEDS: HYDROcodone/acetaminophen (*CRX) 5-325 MG TABLET 1 TAB PO ×4 (03:39→23:25)
[2022-05-02 04:05] VITALS: BP 145/85; PULSE 82; RESP 17; TEMP 36.6; O2SAT 97
[2022-05-02 05:50] LABS: Hematocrit 28.7 % (37.0-47.0); Hemoglobin 9.1 g/dL (12.0-15.0); Mean Corpuscular HGB Conc 31.7 g/dl (32-36); Mean Corpuscular Hemoglobin 30.4 pg (26-34); Mean Platelet Volume 9.9 fl (7.4-10.4); Platelet Count Result 245 k/mm3 (150-375); Red Blood Count 2.99 M/mm3 (4.2-5.4); Red Cell Distribution Width 15.6 % (11.5-14.5); White Blood Count 9.4 K/mm3 (4.5-10.0)
[2022-05-02 07:38] LABS: Anion Gap 2 mmol/L (8-16); Blood Urea Nitrogen 14 mg/dL (7-17); Calcium 9.7 mg/dL (8.4-10.2); Carbon Dioxide 29 mmol/L (22-30); Chloride 105 mmol/L (98-107); Estimated CRCL calculation 42 ml/min; Estimated Glomerular Filt Rate 60; Glucose 95 mg/dL (65-110); Potassium 3.4 mmol/L (3.4-5.0); Sodium 136 mmol/L (137-145)
[2022-05-02] MEDS: GABAPENTIN 100 MG CAPSULE PO ×3 (08:37→16:33)
[2022-05-02] MEDS: POTASSIUM CHLORIDE 20 MEQ TABLET 40 MEQ PO (08:37)
[2022-05-02] MEDS: ENOXAPARIN 40 MG/0.4 ML SYRINGE SUB-Q (08:38)
[2022-05-02] MEDS: LIDOCAINE 5% PATCH 3 PATCH TRANSDERM (08:38)
[2022-05-02] MEDS: CYCLOBENZAPRINE HCL 5 MG TABLET PO ×2 (10:51→23:25)
[2022-05-02] MEDS: ERTAPENEM 1 GM/NS 50 ML 1 GM/50 ML BAG IVPB (11:56)
[2022-05-02 12:24] VITALS: BP 152/102; PULSE 77; RESP 18; TEMP 36.7; O2SAT 98
--- NOTE | 2022-05-02 12:41 | PC.NURSE ---
Patient states she is in a lot of pain in her back, hip and both arms. Is not comfortable being discharged back to the facility at this time.
[2022-05-02] MEDS: ALPRAZolam (*CRX) 0.25 MG TABLET PO (12:57)
--- NOTE | 2022-05-02 13:13 | PM.IMPN ---
Progress Note: A&P Assessment and Plan (1) Acute UTI: Code(s): N39.0 - Urinary tract infection, site not specified Status: Acute Assessment and Plan: patient is started on imipenem recurrent UTI Cultures noted. (2) N&V (nausea and vomiting): Qualifiers: Vomiting type: unspecified Qualified Code(s): R11.2 - Nausea with vomiting, unspecified Code(s): R11.2 - Nausea with vomiting, unspecified Status: Acute Assessment and Plan: improving (3) GERD (gastroesophageal reflux disease): Code(s): K21.9 - Gastro-esophageal reflux disease without esophagitis Status: Acute Assessment and Plan: PPI (4) Chronic indwelling Sotelo catheter: Code(s): Z97.8 - Presence of other specified devices Status: Acute Assessment and Plan: catheter exchanged in emergency room (5) Rheumatoid arthritis: Code(s): M06.9 - Rheumatoid arthritis, unspecified Status: Acute Assessment and Plan: patient is on daily prednisone 5 mg Plan 04/28/2022 interval history: patient remains clinically stable had no complaint, her is present, patient with UTI ESBL being treated with imipenem 12/28, [facility] ID suspect patient patient has a complicated UTI and recommended to stop the imipenem and place the patient on ertapenem for total of 7 days 12/28, will continue to monitor. 04/29/2022 interval history: patient remains clinically stable has no complaint, other than chronic back pain which is not controle with tramadol, will stop tramado and add norco 5/325 q4-6 PRN as well Cyclobenzaprine 5mg q8 PRN, patient with UTI ESBL was treated with imipenem 12/28, [facility] pharmacy ID suspect patient has a complicated UTI and recommended to stop the imipenem and place the patient on ertapenem for total of 7 days 01/28, will continue to monitor. 04/30/2022 interval history: patient remains clinically stable has no complaint, other than chronic back pain which is not control with tramadol, stopped tramadol and added norco 5/325 q4-6 PRN as well Cyclobenzaprine 5mg q8 PRN, patient continued to complain of back pain and today tells a patient also has a fracture on right shoulder and rotator cuff tear on the left shoulder, will add gabapentin 100 mg t.i.d., patient also has history drop foot and bed-bound, patient with UTI ESBL was treated with imipenem 12/28, [facility] ID suspect patient has a complicated UTI and recommended to stop the imipenem and place the patient on ertapenem for total of 7 days 02/27, will continue to monitor. 05/01/2022 interval history: patient remains clinically stable has no complaint, other than chronic back pain which is not control with tramadol, stopped tramadol and added norco 5/325 q4-6 PRN as well Cyclobenzaprine 5mg q8 PRN, patient continued to complain of back pain and on 04/30 told patient also has a fracture on right shoulder and rotator cuff tear on the left shoulder, added gabapentin 100 mg t.i.d., patient also has history drop foot and bed-bound, today patient stats her pain is little better, will CPM may increase gabapentin is 1 week, patient with UTI ESBL was treated with imipenem 12/28, [facility] ID suspect patient has a complicated UTI and recommended to stop the imipenem and place the patient on ertapenem for total of 7 days 03/30, will continue to monitor. 05/02/2022 interval history: patient remains clinically stable has no complaint, other than chronic back pain which is not control with tramadol, stopped tramadol and added norco 5/325 q4-6 PRN as well Cyclobenzaprine 5mg q8 PRN, patient continued to complain of back pain and on 04/30 patient said she also has a fracture on right shoulder and rotator cuff tear on the left shoulder, added gabapentin 100 mg t.i.d., patient also has history drop foot and bed-bound, today patient complained pain and swelling in her right arm and wrist x-ray of the wrist was normal, dopplor US did
[2022-05-02 22:00] VITALS: BP 117/42; PULSE 90; RESP 16; TEMP 36.7; O2SAT 94
[2022-05-02 22:24] VITALS: O2SAT 91
[2022-05-03] MEDS: SODIUM CHLORIDE 0.9% IV 1,000 ML 100 ML IV CONT ×2 (03:22→13:38)
[2022-05-03 06:00] VITALS: BP 136/57; PULSE 63; RESP 18; TEMP 36.2; O2SAT 96
[2022-05-03 06:05] LABS: Hematocrit 29.6 % (37.0-47.0); Hemoglobin 9.5 g/dL (12.0-15.0); Mean Corpuscular HGB Conc 32.1 g/dl (32-36); Mean Corpuscular Hemoglobin 30.6 pg (26-34); Mean Corpuscular Volume 95.5 fl (80-100); Mean Platelet Volume 10.6 fl (7.4-10.4); Platelet Count Result 249 k/mm3 (150-375); Red Cell Distribution Width 15.4 % (11.5-14.5); White Blood Count 8.1 K/mm3 (4.5-10.0)
[2022-05-03 06:27] LABS: Anion Gap 4 mmol/L (8-16); Blood Urea Nitrogen 12 mg/dL (7-17); Calcium 9.6 mg/dL (8.4-10.2); Carbon Dioxide 27 mmol/L (22-30); Chloride 104 mmol/L (98-107); Estimated CRCL calculation 42 ml/min; Estimated Glomerular Filt Rate 60; Glucose 88 mg/dL (65-110); Potassium 3.7 mmol/L (3.4-5.0); Sodium 135 mmol/L (137-145)
[2022-05-03 08:39] VITALS: O2SAT 94
[2022-05-03] MEDS: HYDROcodone/acetaminophen (*CRX) 5-325 MG TABLET 1 TAB PO ×2 (08:49→14:12)
[2022-05-03] MEDS: GABAPENTIN 100 MG CAPSULE PO ×2 (08:49→12:28)
[2022-05-03] MEDS: ENOXAPARIN 40 MG/0.4 ML SYRINGE SUB-Q (08:49)
[2022-05-03] MEDS: LIDOCAINE 5% PATCH 3 PATCH TRANSDERM (08:49)
[2022-05-03] MEDS: CYCLOBENZAPRINE HCL 5 MG TABLET PO (08:49)
--- NOTE | 2022-05-03 13:04 | PM.DS ---
DS: Admitting Diagnosis Discharge Date 05/03/2022 Admitting Diagnosis nausea or vomiting, UTI DS: Discharge Diagnosis Discharge Diagnosis (1) Acute UTI: Code(s): N39.0 - Urinary tract infection, site not specified Status: Acute Assessment and Plan: patient is started on imipenem recurrent UTI Cultures noted. (2) N&V (nausea and vomiting): Qualifiers: Vomiting type: unspecified Qualified Code(s): R11.2 - Nausea with vomiting, unspecified Code(s): R11.2 - Nausea with vomiting, unspecified Status: Acute Assessment and Plan: improving (3) GERD (gastroesophageal reflux disease): Code(s): K21.9 - Gastro-esophageal reflux disease without esophagitis Status: Acute Assessment and Plan: PPI (4) Chronic indwelling Sotelo catheter: Code(s): Z97.8 - Presence of other specified devices Status: Acute Assessment and Plan: catheter exchanged in emergency room (5) Rheumatoid arthritis: Code(s): M06.9 - Rheumatoid arthritis, unspecified Status: Acute Assessment and Plan: patient is on daily prednisone 5 mg Plan 04/28/2022 interval history: patient remains clinically stable had no complaint, her is present, patient with UTI ESBL being treated with imipenem 12/28, [facility] pharmacy ID suspect patient patient has a complicated UTI and recommended to stop the imipenem and place the patient on ertapenem for total of 7 days 12/28, will continue to monitor. 04/29/2022 interval history: patient remains clinically stable has no complaint, other than chronic back pain which is not controle with tramadol, will stop tramado and add norco 5/325 q4-6 PRN as well Cyclobenzaprine 5mg q8 PRN, patient with UTI ESBL was treated with imipenem 12/28, [facility] pharmacy ID suspect patient has a complicated UTI and recommended to stop the imipenem and place the patient on ertapenem for total of 7 days 01/28, will continue to monitor. 04/30/2022 interval history: patient remains clinically stable has no complaint, other than chronic back pain which is not control with tramadol, stopped tramadol and added norco 5/325 q4-6 PRN as well Cyclobenzaprine 5mg q8 PRN, patient continued to complain of back pain and today tells a patient also has a fracture on right shoulder and rotator cuff tear on the left shoulder, will add gabapentin 100 mg t.i.d., patient also has history drop foot and bed-bound, patient with UTI ESBL was treated with imipenem 12/28, [facility] pharmacy ID suspect patient has a complicated UTI and recommended to stop the imipenem and place the patient on ertapenem for total of 7 days 02/27, will continue to monitor. 05/01/2022 interval history: patient remains clinically stable has no complaint, other than chronic back pain which is not control with tramadol, stopped tramadol and added norco 5/325 q4-6 PRN as well Cyclobenzaprine 5mg q8 PRN, patient continued to complain of back pain and on 04/30 told patient also has a fracture on right shoulder and rotator cuff tear on the left shoulder, added gabapentin 100 mg t.i.d., patient also has history drop foot and bed-bound, today patient stats her pain is little better, will CPM may increase gabapentin is 1 week, patient with UTI ESBL was treated with imipenem 12/28, [facility] pharmacy ID suspect patient has a complicated UTI and recommended to stop the imipenem and place the patient on ertapenem for total of 7 days 03/30, will continue to monitor. 05/02/2022 interval history: patient remains clinically stable has no complaint, other than chronic back pain which is not control with tramadol, stopped tramadol and added norco 5/325 q4-6 PRN as well Cyclobenzaprine 5mg q8 PRN, patient continued to complain of back pain and on 04/30 patient said she also has a fracture on right shoulder and rotator cuff tear on the left shoulder, added gabapentin 100 mg t.i.d., patient also has history drop foot and bed-bound, today pat
[2022-05-03 13:15] LABS: EDCOVIDSCREEN Negative (Negative)
--- NOTE | 2022-05-03 17:00 | PM.CNOR ---
Assessment and Plan Assessment and plan (1) Rheumatoid arthritis: Code(s): M06.9 - Rheumatoid arthritis, unspecified Status: Acute (2) Fall: Code(s): W19.XXXA - Unspecified fall, initial encounter Status: Acute (3) Shoulder pain: Code(s): M25.519 - Pain in unspecified shoulder Status: Acute Plan Severe chronic pain syndrome. Affecting multiple joints. Severe diffuse arthritic disease. 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 Therapy for the left shoulder unlikely to have functional benefit, and will be very painful. She may use the hand as tolerated. She is nonambulatory. I had a fouzia discussion with the patient, her daughter and her . The patient is failing to thrive. Pain management indicated. No surgical indication. History of Present Illness HPI Consult date: 05/03/22 Chief complaint: Urinary Tract Infection Narrative: 81-year-old female. Significant medical comorbidities. I was asked see the patient regarding chronic left shoulder pain. Her daughter and are in the room with her. She has had chronic debilitating shoulder pain. In fact she has had diffuse pains in multiple joints. She has become nonweightbearing. She has bilateral foot drops. She has been in and out of hospitalizations for various comorbid conditions. Review of Systems Review of Systems: UTI [facility] Past Medical History Medical History Chronic indwelling Sotelo catheter COVID (10/2021) Dementia Essential hypertension GERD (gastroesophageal reflux disease) Hyperlipidemia Hypothyroidism Rheumatoid arthritis Urinary retention Surgical History Surgical History Status post cataract extraction of both eyes with insertion of intraocular lens Family History Family History Mother COPD (chronic obstructive pulmonary disease) Hypertension Sibling Cancer Other Breast cancer Social History Social History Smoking status: Never smoker Alcohol intake: never Substance use: never Substance use type: does not use Additional living arrangements comments: [facility] Care Spiritual care concerns: No Meds Home Medications and Allergies Home Medications Medication Instructions Recorded Confirmed Type acetaminophen 325 mg tablet 650 mg PO Q6H PRN Pain (Scale 06/13/22 07/04/22 History (Tylenol) Score 1-3) amlodipine 10 mg tablet 10 mg PO DAILY 04/05/22 04/26/22 History ascorbic acid (vitamin C) 500 mg 500 mg PO DAILY 04/05/22 04/26/22 History tablet baclofen 5 mg tablet 2.5 mg PO BID 04/05/22 04/26/22 History bisacodyl 10 mg rectal suppository 10 mg RECTAL DAILY PRN Constipation 04/05/22 04/26/22 History cyanocobalamin (vitamin B-12) 100 100 mcg PO DAILY 04/05/22 04/26/22 History mcg tablet diclofenac sodium 1 % topical gel 1 ea topical TID PRN Back Pain 04/05/22 04/26/22 History (Arthritis Pain (diclofenac)) folic acid 1 mg tablet 1.5 mg PO DAILY 04/05/22 04/26/22 History hydrocodone 10 mg-acetaminophen 1 tablet PO Q6H PRN Pain (Scale 04/05/22 04/26/22 History 325 mg tablet Score 4-6) hydrocortisone 1 % topical cream 1 applic topical BID PRN Itching 04/05/22 04/26/22 History levothyroxine 125 mcg tablet 125 mcg PO DAILY 04/05/22 04/26/22 History lidocaine 5 % topical patch 1 patch topical DAILY 04/05/22 04/26/22 History (Lidoderm) losartan 25 mg tablet 25 mg PO DAILY 04/05/22 04/26/22 History magnesium citrate 300 ml PO DAILY PRN Constipation 04/05/22 04/26/22 History magnesium hydroxide 400 mg/5 mL 30 ml PO HS PRN Constipation 04/05/22 04/26/22 History oral suspension (Milk of Magnesia) magnesium oxide 400 mg (241.3 mg 400 mg PO TID 04/05/22 04/26/22 History magnes
== END 2022-05-03 14:34 | DRG 690 ==
LOC: ANHED 04-26 02:12 → ANH2MED 04-26 04:00
PROVIDERS: Chiropractor; Physician Assistant; Admitting Provider Internal Medicine; Emergency Provider Emergency Medicine; Visit Provider Family Medicine
DX: N39.0 Urinary tract infection, site not specified (principal); G82.20 Paraplegia, unspecified; Z16.12 Extended spectrum beta lactamase (ESBL) resistance; Z20.822 Contact with and (suspected) exposure to COVID-19; R11.2 Nausea with vomiting, unspecified; N31.9 Neuromuscular dysfunction of bladder, unspecified; E03.9 Hypothyroidism, unspecified; K21.9 Gastro-esophageal reflux disease without esophagitis; E78.5 Hyperlipidemia, unspecified; M06.9 Rheumatoid arthritis, unspecified; F03.90 Unspecified dementia, unspecified severity, without behavioral disturbance, psychotic disturbance, mood disturbance, and anxiety; I10 Essential (primary) hypertension; G89.4 Chronic pain syndrome; M19.90 Unspecified osteoarthritis, unspecified site; M24.412 Recurrent dislocation, left shoulder; M25.512 Pain in left shoulder; R62.7 Adult failure to thrive; M21.372 Foot drop, left foot; M21.371 Foot drop, right foot; M54.9 Dorsalgia, unspecified; W19.XXXA Unspecified fall, initial encounter; R29.6 Repeated falls; Z74.01 Bed confinement status; Z79.899 Other long term (current) drug therapy; Z86.16 Personal history of COVID-19; Z98.42 Cataract extraction status, left eye; Z98.41 Cataract extraction status, right eye; Z96.1 Presence of intraocular lens; Z97.8 Presence of other specified devices; Z99.3 Dependence on wheelchair
CPT/HCPCS: 36415; 51702; 73100; 80048; 80053; 81001; 83690; 85025; 85027; 87077; 87086; 87088; 87186; 87426; 93971; 96361; 96365; 96366; 96367; 96372; 96376; 99285; A9270; C9803; G0378; J0131; J0743; J1335; J1650; J7030